=== PATIENT | male | born 1955 | race Caucasian/White ===

== ENCOUNTER 2019-11-13 15:05 | Emergency (ER) | payer OTHER ==
--- NOTE | 2019-11-13 15:15 | EDM.PDOC ---
ED HPI GENERAL MEDICAL PROBLEM - General Chief Complaint: Respiratory Problem Stated Complaint: Dyspnea Time Seen by Provider: 11/13/19 15:10 Source of Information: Reports: Patient, Family (), Old Records ([facility] chart/EMR) History Limitations: Reports: No Limitations - History of Present Illness INITIAL COMMENTS - FREE TEXT/NARRATIVE: The patient was brought to the emergency room via private automobile by his for evaluation of progressive dyspnea, weakness, and dependent edema over the last few days with no history of fever, known exposure to infection, recent use of antipyretic medication, etc. Only brief history obtained from his prior to her leaving the facility with the patient being a somewhat poor historian. Note that the patient does have an unknown type of liver disease and previous history of alcohol abuse as below with an unintentional 22 pound weight gain during the last 2 months. The patient denies any chest pain/pressure , heart flutter, orthostasis, orthopnea, diaphoresis, paresthesias, or any other anginal-type symptoms, however note progressive decreased exercise tolerance during the last week. He did have a minor fall at home yesterday with no history of significant head injury, change in mental status, headaches, visual changes, neurological deficits, or other complaints or injuries. He did suffer a mild left arm skin tear while trying to get into the chair to come to the hospital today, however. No recent history of abdominal pain, heartburn, nausea, diarrhea, melena, gross hematochezia, or any food intolerance, including fatty foods, etc., although he has been having some problems with nonspecific flatulence. He denies gross hematuria, colic, or other UTI symptoms. The patient also denies any recent fever, wheezing, etc., although he has had some greenish chronic nasal drainage and mildly productive cough during the last 3 months as below with the patient using his 's nebulizer treatments during the last couple of days, which he normally uses. He also has chronic sinusitis type symptoms over the last 3 months, which is not new for the patient. He denies any specific pain or other discomfort. He has not been out of the house for the last couple of months, although he was in [place] in August 2011. Onset: Gradual Duration: Day(s): (As above), Getting Worse Location: Reports: Other (No pain) Quality: Reports: Same as Previous Episode Improves with: Reports: Rest Worsens with: Reports: Movement (Activity) Context: Reports: Trauma (Minor as above with no acute injury). Denies: Sick Contact Associated Symptoms: Reports: Cough (Chronic), cough w sputum (As above), Shortness of Breath, Weakness. Denies: Chest Pain, Diaphoresis, Fever/Chills, Loss of Appetite, Malaise, Nausea/Vomiting, Rash, Syncope Treatments DIRECTOR FAMILY: Reports: Other Medication(s) (As above) Abdomen Pain Score (Numeric/FACES): 6 - Related Data Allergies Allergy/AdvReac Type Severity Reaction Status Date / Time amoxicillin Allergy Nausea Verified 11/13/19 17:59 atorvastatin [From Lipitor] Allergy UNKNOWN Verified 12/07/17 14:59 erythromycin base Allergy UNKNOWN Verified 12/07/17 14:59 Home Meds: Home Meds ALPRAZolam [Alprazolam] 1 tab PO BEDTIME 11/13/19 [History] Aspirin [Adult Low Dose Aspirin EC] 81 mg PO DAILY 11/13/19 [History] Furosemide 40 mg PO DAILY 11/13/19 [History] Omeprazole 20 mg PO DAILY 11/13/19 [History] Spironolactone [Aldactone] 1 tab PO DAILY 11/13/19 [History] cloNIDine HCL [Clonidine HCl] 1 tab PO BID 11/13/19 [History] Past Medical History HEENT History: Reports: Allergic Rhinitis, Hard of Hearing, Impaired Vision, Otitis Media, Sinusitis, Other (See Below). Denies: Cataract, Glaucoma, Macular Degeneration, Retinal Detachment Other HEENT History: Recurrent otitis media with no previous history of PE tubes. Chronic allergic rhinitis and sinusitis. History of acute right-sided hearing loss and dizziness in August 2009 with negative workup as below. He does wear glasses. Cardiovascular History: Reports: Arrhythmia, High Cholesterol, Hypertension, Other (See Below). Denies: Afib, Aneurysm, Blood Clots/VTE/DVT, CAD, Cardiomyopathy, Heart Failure, Heart Murmur, [place], PVD, Syncope Other Cardiovascular History: PACs and PVCs Respiratory History: Reports: Bronchitis, Recurrent, COPD, Intubation, Previous , Pneumonia, Recurrent, Pulmonary Fibrosis. Denies: Asthma, Intubation, Difficult, PE, Pneumothorax, Sleep Apnea Gastrointestinal History: Reports: Cholelithiasis, Colon Polyp, Diverticulosis, Fatty Liver, Gastritis, GERD, Hepatitis, PUD, Other (See Below). Denies: Celiac Disease, Chronic Constipation, Chronic Diarrhea, Cirrhosis, Fecal Incontinence, GI Bleed, Helicobacter Pylori, Hiatal Hernia, Inflammatory Bowel Disease, Irritable Bowel Syndrome, Jaundice, Pancreatitis Other Gastrointestinal History: History of duodenal ulcer at age 14. Benign gastric colonic polyp by EGD as below. Benign diminutive polyps in the rectum and mid aspect of the descending colon diagnosed by colonoscopy as below. Colon polyps not sent for pathological review. Sigmoid diverticulosis. Chronic LFTs elevation secondary to fatty liver and/or alcohol use. Hepatosplenomegaly. Genitourinary History: Reports: None. Denies: Acute Renal Failure, BPH, Chronic Renal Insuffiency, Renal Calculus, Retention, Urinary, STD, Urinary Incontinence, UTI, Recurrent Musculoskeletal History: Reports: Arthritis, Back Pain, Chronic, Fracture, Neck Pain, Chronic, Osteoarthritis, Other (See Below). Denies: Amputation, Gout, Osteoporosis, RA, SLE Other Musculoskeletal History: Right ankle fracture in 1976 with surgery as below. Moderate left anterior lateral meniscal tear of the knee with additional ruptured popliteal cyst and moderate chondromalacia with no surgery to this point. Neurological History: Reports: None. Denies: Alzheimers Disease, Cerebral Aneurysms, Concussion, CVA, Headaches, Chronic, Head Trauma, Migraines, MS, Neuropathy, Peripheral, Parkinson's, Seizure, TIA, Vertigo Psychiatric History: Reports: Addiction, Anxiety, Depression, Other (See Below) . Denies: Abuse, Victim of, ADD, ADHD, Alzheimers Disease, Dementia, Hallucinations, Psych Hospitalization(s), Psychosis, PTSD, Suicide Attempt, Suicidal Ideation Other Psychiatric History: Probable history of alcohol abuse especially since his senior living in 2018 as below. Endocrine/Metabolic History: Reports: Hypomagnesemia, Obesity/BMI 30+. Denies: Diabetes, Type I, Diabetes, Type II, Diabetes Mellitus, Type 3c, Hypothyroidism , IDDM Hematologic History: Reports: Anemia. Denies: Blood Transfusion(s), Iron Deficiency Immunologic History: Denies: AIDS, HIV, SLE Oncologic (Cancer) History: Reports: None. Denies: Basal Cell Carcinoma, Colon , Hodgkin's Lymphoma, Leukemia, Liver, Lymphoma, Malignant Melanoma, Non-Hodgkin 's Lymphoma, Pancreatic, Prostate, Squamous Cell Carcinoma Dermatologic History: Reports: None. Denies: Eczema, Psoriasis - Infectious Disease History Infectious Disease History: Reports: Chicken Pox, Measles, Mumps. Denies: C- Difficile, Meningitis, Mononucleosis, MRSA, Novel Coronavirus, Pertussis ( Whooping Cough), Rheumatic Fever, Rubella, Scarlet Fever, Shingles, TB, VRE - Past Surgical History Head Surgeries/Procedures: Reports: None HEENT Surgical History: Reports: Adenoidectomy, Oral Surgery, Tonsillectomy, Other (See Below). Denies: Cataract Surgery, Eye Surgery, Laser Surgery, LASIK , Myringotomy w Tube(s), Naso-Sinus Surgery Other HEENT Surgeries/Procedures: [place] teeth extraction x 4 in his 20s. Additional teeth extractions. Cardiovascular Surgical History: Reports: None. Denies: Varicose Respiratory Surgical History: Denies: Thoracentesis GI Surgical History: Reports: Cholecystectomy, Colonoscopy, EGD, Polypectomy, Other (See Below). Denies: Appendectomy, Hernia, Abdominal, Hernia, Inguinal, Hernia Repair/Other Other GI Surgeries/Procedures: Colonoscopy and EGD with excision of benign gastric polyps and benign colonic polyps 2 as above on 06/19/10; laparoscopic cholecystectomy on 09/16/06. Male Surgical History: Reports: Circumcision. Denies: TURP-Transurethral Resection of Prostate, Vasectomy Other Male Surgeries/Procedures: Circumcision as an . Endocrine Surgical History: Reports: None. Denies: Thyroid Biopsy Neurological Surgical History: Reports: None. Denies: C-Spine, Discectomy, Laminectomy, Lumbar Spine, Sacral Spine, Spinal Fusion, Thoracic Spine Musculoskeletal Surgical History: Reports: Carpal Tunnel, ORIF, Other (See Below ). Denies: Arthroscopic Knee, Arthroscopic Procedure, Ganglion Cyst, Joint Replacement, Shoulder Surgery Other Musculoskeletal Surgeries/Procedures:: Bilateral carpal tunnel release at about age 60. Left ankle surgery secondary to fracture in 1976 with no ORIF? Oncologic Surgical History: Reports: None Dermatological Surgical History: Reports: None - Past Imaging History Past Imaging History: Reports: ALEXANDRA Screen (04/14/10), CAT Scan (Temporal bones bilaterally on 08/13/09.), MRI (Left knee on 09/23/15), Ultrasound (Right upper quadrant ultrasound on 05/13/19 and 09/03/16. Abdominal ultrasound on 01/06/2000.), Venous Doppler (Left leg on 04/08/10.) Social & Family History - Tobacco Use Smoking Status *Q: Former Smoker Tobacco Use Within Last Twelve Months: Cigarettes Years of Tobacco use: 37 Packs/Tins Daily: 1 Packs/Tins Daily Comment: Smoked between ages 27 and 64 with last use on . Used Tobacco, but Quit: Yes Smoking Cessation Information Provided To Patient: No Second Hand Smoke Exposure: No Second Hand Smoke Education Provided: No - Alcohol Use Alcohol Use History: Yes Days Per Week of Alcohol Use: 3 Number of Drinks Per Day: 10 Number of Drinks Per Day Comment: Drinks to intoxication usually hard strait tequila since 2018 with moderate alcohol use prior to that with the patient denying alcohol abuse until he retired in 2018. No previous DWIs, problems with alcohol abuse, etc. Total Drinks Per Week: 30 Alcohol Use in Last Twelve Months: Yes Alcohol Use Frequency: Binges - Recreational Drug Use Recreational Drug Use: No Drug Use in Last 12 Months: No Recreational Drug Type: Denies: Amphetamines (Speed), Cocaine, Heroin, Inhalants (Glues, Solvents, Aerosols), LSD (Acid), Marijuana/Hashish, Methamphetamine, Morphine, Oxycodone - Living Situation & Occupation Living situation: Reports: Occupation: Retired (From the railroad at age 62, 2018) ED ROS GENERAL - Review of Systems Review Of Systems: Comprehensive ROS is negative, except as noted in HPI. ED EXAM, GENERAL - Physical Exam Exam: See Below Exam Limited By: No Limitations General Appearance: Alert, WD/WN, Moderate Distress, Cachetic (Mild), Other ( Moderate generalized nonspecific weakness). No: Lethargic Eye Exam: Bilateral Eye: EOMI, PERRL, Other (Mild scleral icterus. Patient is wearing glasses; no nystagmus) Ears: Normal External Exam, Normal Canal, Hearing Grossly Normal, Normal TMs Nose: Normal Mucosa, No Blood, Clear Rhinorrhea Throat/Mouth: Normal Inspection, Normal Lips, Normal Teeth (Occasional missing teeth), Normal Gums, Normal Oropharynx, Normal Voice, No Airway Compromise. No : Dysphagia, Perioral Cyanosis Head: Atraumatic, Normocephalic. No: Facial Swelling, Facial Tenderness, Sinus Tenderness Neck: Normal Inspection, Supple, Non-Tender, Full Range of Motion. No: Carotid Bruit, Lymphadenopathy (L), Lymphadenopathy (R), Thyromegaly Respiratory/Chest: No Respiratory Distress, No Accessory Muscle Use, Chest Non- Tender, Decreased Breath Sounds (Right base), Rales (Mild diffuse bilateral particularly in the bases), Rhonchi (Occasional bilateral), Wheezing ( Occasional bilateral). No: Stridor, Pleural Rub, Retractions Cardiovascular: Normal Peripheral Pulses, No Gallop, No JVD, No Murmur, No Rub, Tachycardia (Occasional as belowbrief with activity), Extra Beats (Regular rate ). No: No Edema (Dependent edema as below), Gallop/S3, Gallop/S4, Friction Rub Peripheral Pulses: 2+: Radial (L), Radial (R), Dorsalis Pedis (L), Dorsalis Pedis (R) GI/Abdominal: Normal Bowel Sounds, Soft, Non-Tender, No Organomegaly, No Abnormal Bruit, No Mass, Pelvis Stable, Distended (With moderate ascites), Hepatomegaly, Splenomegaly. No: Guarding, Rebound, Tender (Male) Exam: Other (1 cm possible abscess in the proximal right retrocecal region with history of greenish drainage). No: Circumcised, Hernia, Inguinal Lymphadenopathy, Penile Lesions, Scrotum Tenderness (L), Scrotum Tenderness (R) Rectal (Males) Exam: Deferred Back Exam: Normal Inspection. No: CVA Tenderness (L), CVA Tenderness (R), Muscle Spasm Extremities: Normal Inspection, Normal Range of Motion, Non-Tender, Normal Capillary Refill, Pedal Edema (+1 bilateral pedal/pretibial edema ). No: Kyle' s Sign Neurological: Alert, Oriented, CN II-XII Intact, Normal Cognition, Normal Gait, Normal Reflexes (Negative Babinski's), No Motor/Sensory Deficits Psychiatric: Normal Affect, Normal Mood, Other (No sign of intoxication) Skin Exam: Ecchymosis (Diffuse occasional), Jaundice (Borderline), Wound/ Incision (12 centimeter abrasion/skin tear over the proximal left ulnar region) . No: Diaphoretic, Petechiae Lymphatic: No Adenopathy EKG INTERPRETATION EKG Date: 11/13/19 Time: 15:55 Rhythm: Other (PACs and PVCs) [place]: Normal (Left cardiac axis) P-Wave: Present QRS: Normal (0.09 seconds with diffuse repolarization changes and overall low voltage) ST-T: Normal QT: Normal WA/PQ Interval: 0.16 seconds with extreme poor R-wave progression in the anterior leads Comparison: No Change (Since Last EKG on 10/03/19) EKG Interpretation Comments: 1. No acute ischemic changes 2. PACs and PVCs 3. Repolarization changes Course - Vital Signs Last Recorded V/S: Last Vital Signs Temp 37.1 C 11/13/19 15:10 Pulse 95 11/13/19 17:57 Resp 19 11/13/19 17:57 BP 149/98 H 11/13/19 17:57 Pulse Ox 97 11/13/19 17:57 Vital Signs - 24 hr 11/13/19 11/13/19 11/13/19 15:10 15:40 15:55 Temperature [ 37.1 C Temporal] Pulse, 87 86 85 Peripheral [ Pulse Oximetry] Respiratory 18 18 20 Rate Blood Pressure 146/89 H 148/100 H 143/100 H [Left Upper Arm ] O2 Sat by Pulse 95 96 95 Oximetry 11/13/19 11/13/19 11/13/19 16:10 17:07 17:57 Temperature [ Temporal] Pulse, 88 89 95 Peripheral [ Pulse Oximetry] Respiratory 18 17 19 Rate Blood Pressure 135/90 153/93 H 149/98 H [Left Upper Arm ] O2 Sat by Pulse 95 95 97 Oximetry - Orders/Labs/Meds Orders: Active Orders 24 hr Category Date Time Status Cardiac Monitoring [RC] CONTINUOUS Care 11/13/19 15:15 Active Communication Order [RC] ROUTINE Care 11/13/19 15:15 Active Communication Order [RC] ROUTINE Care 11/13/19 18:28 Ordered EKG Documentation Completion [RC] ASDIRECTED Care 11/13/19 15:15 Active Oxygen Therapy, ED [RC] CONTINUOUS Care 11/13/19 15:15 Active Peripheral IV Care [RC] . DIRECTED Care 11/13/19 15:15 Active Pulse Oximetry [RC] CONTINUOUS Care 11/13/19 15:15 Active Up With Assistance [RC] ASDIRECTED Care 11/13/19 15:15 Active Nothing Per Oral Diet [DIET] Diet 11/13/19 Breakfast Active Chest 1V Frontal [CR] Stat Exams 11/13/19 15:15 Taken Chest PE [Ang Chest] [CT] Stat Exams 11/13/19 16:23 Taken CORONAVIRUS COVID-19 PCR PHL Stat Lab 11/13/19 15:15 Received CULTURE BLOOD [BC] Stat Lab 11/13/19 15:30 Received CULTURE BLOOD [BC] Stat Lab 11/13/19 15:40 Received CULTURE SPUTUM + SMEAR [RM] Urgent Lab 11/13/19 15:15 Ordered Sodium Chloride 0.9% [Saline Flush] Med 11/13/19 15:15 Active 10 ml FLUSH ASDIRECTED PRN Blood Culture x2 Reflex Set [OM.PC] Stat Oth 11/13/19 15:15 Ordered Isolation [COMM] Routine Oth 11/13/19 15:15 Active Obtain Past Medical Record [OM.PC] Stat Oth 11/13/19 15:15 Active Peripheral IV Insertion Adult [OM.PC] Stat Ot 11/13/19 15:15 Ordered Resuscitation Status Routine Resus Stat 11/13/19 15:15 Ordered Medication Orders Sodium Chloride (Saline Flush) 10 ml FLUSH ASDIRECTED PRN PRN Reason: Keep Vein Open Last Admin: 11/13/19 16:30 Dose: 10 ml Labs: Laboratory Tests 11/13/19 11/13/19 11/13/19 Range/Units 15:30 15:30 15:30 WBC 5.3 (4.0-10.2) K/uL RBC 3.77 L (4.33-5.41) M/uL Hgb 12.7 L (13.1-16.8) g/dL Hct 37.5 L (39.0-49.0) % MCV 99.5 H (84.0-98.0) fL MCH 33.7 H (28.2-33.3) pg MCHC 33.9 (31.7-36.0) g/dL RDW 14.2 H (11.2-14.1) % Plt Count 125 L (150-350) K/uL Neut % (Auto) 59.2 (45.0-80.0) % Lymph % (Auto) 26.1 (10.0-50.0) % [place] % (Auto) 11.7 (2.0-14.0) % Eos % (Auto) 2.4 (0.0-5.0) % Baso % (Auto) 0.6 (0.0-2.0) % Neut # (Auto) 3.15 (1.40-7.00) K/uL Lymph # (Auto) 1.39 (0.50-3.50) K/uL [place] # (Auto) 0.62 (0.00-1.00) K/uL Eos # (Auto) 0.13 (0.00-0.50) K/uL Baso # (Auto) 0.03 (0.00-0.20) K/uL PT 15.7 H (9.5-12.0) SEC INR 1.6 APTT 26.7 (24.5-32.8) SEC D-Dimer, Quantitative 4230 H (0-400) ng/mL Sodium (136-145) mmol/L Potassium (3.5-5.1) mmol/L Chloride (98-107) mmol/L Carbon Dioxide (21.0-32.0) mmol/L BUN (7-18) mg/dL Creatinine (0.51-1.17) mg/dL Est Cr Clr Drug Dosing Estimated GFR (MDRD) mL/min Glucose (74-106) mg/dL Lactic Acid (0.4-2.0) mmol/L Calcium (8.5-10.1) mg/dL Magnesium (1.8-2.4) mg/dL Total Bilirubin (0.2-1.0) mg/dL Direct Bilirubin (0.0-0.2) mg/dL Indirect Bilirubin mg/dL AST (15-37) U/L ALT (12-78) U/L Alkaline Phosphatase (46-116) IU/L Ammonia (11-32) umol/L Creatine Kinase (26-308) U/L Creatine Kinase Index (0.0-2.5) % CK-MB (CK-2) (0.00-3.60) ng/mL Troponin I (0.000-0.056) ng/mL NT-Pro-B Natriuret Pep (0-125) pg/mL Total Protein (6.4-8.2) g/dL Albumin (3.4-5.0) g/dL Amylase (25-115) U/L Lipase (73-393) U/L TSH, Ultra Sensitive (0.358-3.740) mIU/mL Ethyl Alcohol (0.000-0.080) g/dL 11/13/19 11/13/19 11/13/19 Range/Units 15:30 15:30 15:30 WBC (4.0-10.2) K/uL RBC (4.33-5.41) M/uL Hgb (13.1-16.8) g/dL Hct (39.0-49.0) % MCV (84.0-98.0) fL MCH (28.2-33.3) pg MCHC (31.7-36.0) g/dL RDW (11.2-14.1) % Plt Count (150-350) K/uL Neut % (Auto) (45.0-80.0) % Lymph % (Auto) (10.0-50.0) % [place] % (Auto) (2.0-14.0) % Eos % (Auto) (0.0-5.0) % Baso % (Auto) (0.0-2.0) % Neut # (Auto) (1.40-7.00) K/uL Lymph # (Auto) (0.50-3.50) K/uL [place] # (Auto) (0.00-1.00) K/uL Eos # (Auto) (0.00-0.50) K/uL Baso # (Auto) (0.00-0.20) K/uL PT (9.5-12.0) SEC INR APTT (24.5-32.8) SEC D-Dimer, Quantitative (0-400) ng/mL Sodium 135 L (136-145) mmol/L Potassium 4.7 (3.5-5.1) mmol/L Chloride 100 (98-107) mmol/L Carbon Dioxide 27.4 (21.0-32.0) mmol/L BUN 23 H (7-18) mg/dL Creatinine 1.17 (0.51-1.17) mg/dL Est Cr Clr Drug Dosing TNP Estimated GFR (MDRD) > 60 mL/min Glucose 104 (74-106) mg/dL Lactic Acid 2.3 H (0.4-2.0) mmol/L Calcium 8.9 (8.5-10.1) mg/dL Magnesium 1.8 (1.8-2.4) mg/dL Total Bilirubin 3.2 H (0.2-1.0) mg/dL Direct Bilirubin (0.0-0.2) mg/dL Indirect Bilirubin mg/dL AST 64 H (15-37) U/L ALT 29 (12-78) U/L Alkaline Phosphatase 134 H (46-116) IU/L Ammonia (11-32) umol/L Creatine Kinase 97 (26-308) U/L Creatine Kinase Index 1.1 (0.0-2.5) % CK-MB (CK-2) 1.10 (0.00-3.60) ng/mL Troponin I 0.051 (0.000-0.056) ng/mL NT-Pro-B Natriuret Pep 937 H (0-125) pg/mL Total Protein 7.1 (6.4-8.2) g/dL Albumin 2.8 L (3.4-5.0) g/dL Amylase 57 (25-115) U/L Lipase (73-393) U/L TSH, Ultra Sensitive 1.958 (0.358-3.740) mIU/mL Ethyl Alcohol (0.000-0.080) g/dL 11/13/19 11/13/19 Range/Units 15:30 15:30 WBC (4.0-10.2) K/uL RBC (4.33-5.41) M/uL Hgb (13.1-16.8) g/dL Hct (39.0-49.0) % MCV (84.0-98.0) fL MCH (28.2-33.3) pg MCHC (31.7-36.0) g/dL RDW (11.2-14.1) % Plt Count (150-350) K/uL Neut % (Auto) (45.0-80.0) % Lymph % (Auto) (10.0-50.0) % [place] % (Auto) (2.0-14.0) % Eos % (Auto) (0.0-5.0) % Baso % (Auto) (0.0-2.0) % Neut # (Auto) (1.40-7.00) K/uL Lymph # (Auto) (0.50-3.50) K/uL [place] # (Auto) (0.00-1.00) K/uL Eos # (Auto) (0.00-0.50) K/uL Baso # (Auto) (0.00-0.20) K/uL PT (9.5-12.0) SEC INR APTT (24.5-32.8) SEC D-Dimer, Quantitative (0-400) ng/mL Sodium (136-145) mmol/L Potassium (3.5-5.1) mmol/L Chloride (98-107) mmol/L Carbon Dioxide (21.0-32.0) mmol/L BUN (7-18) mg/dL Creatinine (0.51-1.17) mg/dL Est Cr Clr Drug Dosing Estimated GFR (MDRD) mL/min Glucose (74-106) mg/dL Lactic Acid (0.4-2.0) mmol/L Calcium (8.5-10.1) mg/dL Magnesium (1.8-2.4) mg/dL Total Bilirubin 3.2 H (0.2-1.0) mg/dL Direct Bilirubin 1.6 H (0.0-0.2) mg/dL Indirect Bilirubin 1.6 mg/dL AST (15-37) U/L ALT (12-78) U/L Alkaline Phosphatase (46-116) IU/L Ammonia 167 H (11-32) umol/L Creatine Kinase (26-308) U/L Creatine Kinase Index (0.0-2.5) % CK-MB (CK-2) (0.00-3.60) ng/mL Troponin I (0.000-0.056) ng/mL NT-Pro-B Natriuret Pep (0-125) pg/mL Total Protein (6.4-8.2) g/dL Albumin (3.4-5.0) g/dL Amylase (25-115) U/L Lipase 96 (73-393) U/L TSH, Ultra Sensitive (0.358-3.740) mIU/mL Ethyl Alcohol 0.002 (0.000-0.080) g/dL Blood cultures 2 were collected Sputum was collected for Gram stain, culture, and sensitivity. Microbiology 11/13/19 15:15 Influenza Type A Antigen Screen - Final Nasal, Unspecified NEGATIVE INFLUENZA A VIRUS AG REFERENCE RANGE: NEGATIVE Influenza Type B Antigen Screen - Final NEGATIVE INFLUENZA B VIRUS AG REFERENCE RANGE: NEGATIVE COVID-19 nasal specimen collected with results pending Meds: Medications Generic Name Dose Route Start Last Admin Trade Name Freq PRN Reason Stop Dose Admin Sodium Chloride 10 ml 11/13/19 15:15 11/13/19 16:30 Saline Flush FLUSH 10 ml ASDIRECTED PRN Administration Keep Vein Open Discontinued Medications Generic Name Dose Route Start Last Admin Trade Name Freq PRN Reason Stop Dose Admin Famotidine 40 mg 11/13/19 16:23 11/13/19 16:31 Pepcid IVPUSH 11/13/19 16:24 40 mg ONETIME ONE Administration Furosemide 40 mg 11/13/19 16:23 11/13/19 16:31 Lasix IVPUSH 11/13/19 16:24 40 mg NOW ONE Administration Iopamidol 100 ml 11/13/19 16:27 11/13/19 17:20 [id number] (76%) IVPUSH 11/13/19 16:28 100 ml ONETIME ONE Administration - Radiology Interpretation Free Text/Narrative:: quality assurance monitor final shows overall sinus rhythm with occasional PVCs and PACs with average heart rate in the 80s however occasional brief tachycardia in the 110s to 120s. Chest x-ray, portable, shows evidence of mild mostly centralized CHF with additional right middle lobe consolidation consistent with pneumonia. Additional moderately elevated right hemidiaphragm and/or concomitant pleural effusion. No pneumothorax or cardiomegaly. Telephone consultation at 17:32 hours with the radiology department at [facility] in [place] discussing CTA of the chest using PE protocol. No evidence of PE with incidental findings of bilateral atelectasis, moderate right pleural effusion, ascites, hepatic cirrhosis, 2 mm right upper lobe pulmonary nodule, and additional 8 mm nonspecific nodule in the right hepatic lobe. Official x-ray reports received prior to transfer of the patient CT Results Date: 11/13/19 CT Results Time: 17:32 Departure - Departure Time of Disposition: 18:35 Disposition: DC/Tfer to Acute Hospital 02 Condition: Fair Clinical Impression: CHF (congestive heart failure), COPD (chronic obstructive pulmonary disease), Pneumonia, Elevated LFTs, Peptic reflux disease, D-dimer, elevated, Hypoalbuminemia, Macrocytic anemia, Alcohol abuse, PAC (premature atrial contraction), PVCs (premature ventricular contractions), Cellulitis, Elevated lactic acid level, Hepatic cirrhosis, Hypertension - Discharge Information *PRESCRIPTION DRUG MONITORING PROGRAM REVIEWED*: Not Applicable *COPY OF PRESCRIPTION DRUG MONITORING REPORT IN PATIENT [place]: Not Applicable Referrals: PCP,None [Primary Care Provider] - Forms: ED Department Discharge, Interfacility Transfer JOSÉ MIGUEL Additional Instructions: 1. Drive you BEL to the emergency room at [facility] for direct admission into that facility. 2. Nothing to eat or drink until otherwise directed by accepting physicians in [place]. Sepsis Event Note - Focused Exam Vital Signs: Vital Signs Temp Pulse Resp BP Pulse Ox 11/13/19 17:57 95 19 149/98 H 97 11/13/19 17:07 89 17 153/93 H 95 11/13/19 16:10 88 18 135/90 95 11/13/19 15:55 85 20 143/100 H 95 11/13/19 15:40 86 18 148/100 H 96 11/13/19 15:10 37.1 C 87 18 146/89 H 95 Date Exam was Performed: 11/13/19 Time Exam was Performed: 18:28 - Problem List & Annotations (1) Elevated LFTs SNOMED Code(s): 327289506, 633953535 Code(s): R79.89 - OTHER SPECIFIED ABNORMAL FINDINGS OF BLOOD CHEMISTRY Status: Acute Priority: High Current Visit: Yes Annotation/Comment:: Known history of chronic LFTs elevation secondary to previous fatty liver and alcohol abuse. Newly diagnosed hepatic cirrhosis and secondary ascites today as above with additional increased ammonia levels and elevated INR. No evidence of acute bleeding. Patient will likely need paracentesis and GI consultation for possible liver biopsy. Note small right pulmonary nodule by CT scan as above. Telephone consultation at 17:[address] Crowe, emergency room physician at [facility], who does accept the patient for further treatment , evaluation, and probable admission, with no further treatment recommendations given. He is aware of private automobile transfer of the patient by the patient' s secondary to lack of ambulance availability. Vital signs and clinical exam were stable at time of transfer. Patient transferred with saline lock in place. (2) COPD (chronic obstructive pulmonary disease) SNOMED Code(s): 73550522 Code(s): J44.9 - CHRONIC OBSTRUCTIVE PULMONARY DISEASE, UNSPECIFIED Status : Acute Priority: High Current Visit: Yes Onset Date: ~11/13/19 Annotation/Comment:: Note possible right middle lobe pneumonia by today's chest x-ray versus atelectasis by CT of the chest as above. Blood cultures 2 were collected. Sputum for culture and sensitivity and COVID-19 were also collected as above. The patient and his were cautioned not to use her medications or nebulizer with the patient to receive his home medications at time of discharge from accepting facility. Consider PFTs depending on his clinical course. Note previous history of tobacco abuse with recent tobacco cessation. The patient was afebrile with initiation of antibiotic therapy by accepting providers per their discretion. No evidence of sepsis by clinical exam, however lactic acid level should be repeated within 3 hours by accepting providers. IV fluids were not initiated secondary to patient's ascites and CHF. Qualifiers: COPD type: COPD with acute lower respiratory infection Qualified Code(s): J44.0 - Chronic obstructive pulmonary disease with (acute) lower respiratory infection (3) Pneumonia SNOMED Code(s): 319767417 Code(s): J18.9 - PNEUMONIA, UNSPECIFIED ORGANISM Status: Acute Priority: High Current Visit: Yes Onset Date: ~11/13/19 Annotation/Comment:: As above Qualifiers: Pneumonia type: due to unspecified organism Laterality: right Lung location: middle lobe of lung Qualified Code(s): J18.9 - Pneumonia, unspecified organism (4) CHF (congestive heart failure) SNOMED Code(s): 51577109 Code(s): I50.9 - HEART FAILURE, UNSPECIFIED Status: Acute Priority: High Current Visit: Yes Onset Date: 11/13/19 Annotation/Comment:: CHF with concomitant ascites with no chest pain or true anginal type symptoms. Chest pain protocol was not initiated in the emergency room secondary to absence of anginal complaints. No EKG changes consistent with ischemia with normal cardiac enzymes with exception of mild change in troponin I, which is normal, secondary to his CHF. Consider cardiology consultation, rule out of acute [place], etc. by accepting providers. Qualifiers: Heart failure type: unspecified Heart failure chronicity: acute Qualified Code(s): I50.9 - Heart failure, unspecified (5) Elevated lactic acid level SNOMED Code(s): 9024745 Code(s): R79.89 - OTHER SPECIFIED ABNORMAL FINDINGS OF BLOOD CHEMISTRY Status: Acute Priority: High Current Visit: Yes Onset Date: 11/13/19 Annotation/Comment:: As above (6) Peptic reflux disease SNOMED Code(s): 099763096 Code(s): K21.9 - GASTRO-ESOPHAGEAL REFLUX DISEASE WITHOUT ESOPHAGITIS Status: Chronic Priority: Medium Current Visit: Yes Annotation/Comment:: High-dose IV Pepcid given as GI prophylaxis with no recent abdominal complaints or evidence of GI bleed. (7) D-dimer, elevated SNOMED Code(s): 649814261 Code(s): R79.89 - OTHER SPECIFIED ABNORMAL FINDINGS OF BLOOD CHEMISTRY Status: Acute Priority: High Current Visit: Yes Onset Date: 11/13/19 Annotation/Comment:: As above. No clinical evidence of DVT or PE with negative CTA of the chest for PE as above. Patient may benefit from venous Doppler studies of the lower extremities. (8) Hypoalbuminemia SNOMED Code(s): 442160018 Code(s): E88.09 - OTH DISORDERS OF PLASMA-PROTEIN METABOLISM, NEC Status: Acute Priority: Medium Current Visit: Yes Annotation/Comment:: Note hepatic cirrhosis. Continue to observe closely by accepting providers. (9) Macrocytic anemia SNOMED Code(s): 06960226 Code(s): D53.9 - NUTRITIONAL ANEMIA, UNSPECIFIED Status: Chronic Priority : Medium Current Visit: Yes Annotation/Comment:: Known history of macrocytic anemia, which is stable by our hospital records. Recent ferritin and iron levels were elevated with recent decreased TIBC, however. Note hypoalbuminemia and alcohol abuse history as above. Further workup accepting providers. (10) Alcohol abuse SNOMED Code(s): 93100232 Code(s): F10.10 - ALCOHOL ABUSE, UNCOMPLICATED Status: Chronic Priority: High Current Visit: Yes Annotation/Comment:: As above. Newly diagnosed hepatic failure, including cirrhosis by CT scan, elevated ammonia levels, etc. as above. (11) PAC (premature atrial contraction) SNOMED Code(s): 920835986 Code(s): I49.1 - ATRIAL PREMATURE DEPOLARIZATION Status: Chronic Priority : Medium Current Visit: Yes Annotation/Comment:: No chest pain or anginal complaints (12) PVCs (premature ventricular contractions) SNOMED Code(s): 15337865 Code(s): I49.3 - VENTRICULAR PREMATURE DEPOLARIZATION Status: Chronic Priority: Medium Current Visit: Yes Annotation/Comment:: Chest pain or anginal complaints (13) Cellulitis SNOMED Code(s): 618548221 Code(s): L03.90 - CELLULITIS, UNSPECIFIED Status: Acute Priority: Medium Current Visit: Yes Annotation/Comment:: Possible beginning small abscess in the right posterior scrotal region with recent greenish discharge by his 's history. Consider I&D, collection of specimen for culture and sensitivity, etc. by accepting providers. Qualifiers: Site of cellulitis: other site Qualified Code(s): L03.818 - Cellulitis of other sites (14) Hepatic cirrhosis SNOMED Code(s): 04114721 Code(s): K74.60 - UNSPECIFIED CIRRHOSIS OF LIVER Status: Acute Priority: High Current Visit: Yes Onset Date: ~11/13/19 Annotation/Comment:: As above Qualifiers: Hepatic cirrhosis type: alcoholic cirrhosis Ascites presence: with ascites Qualified Code(s): K70.31 - Alcoholic cirrhosis of liver with ascites (15) Hypertension SNOMED Code(s): 38128911 Code(s): I10 - ESSENTIAL (PRIMARY) HYPERTENSION Status: Chronic Priority : High Current Visit: Yes Annotation/Comment:: Blood pressures were somewhat elevated in the emergency room. Continue to observe closely by accepting providers. Qualifiers: Hypertension type: essential hypertension Qualified Code(s): I10 - Essential (primary) hypertension - Problem List Review Problem List Initiated/Reviewed/Updated: Yes - My Orders Last 24 Hours: My Active Orders 11/13/19 15:15 Cardiac Monitoring [RC] CONTINUOUS Communication Order [RC] ROUTINE EKG Documentation Completion [RC] ASDIRECTED Oxygen Therapy, ED [RC] CONTINUOUS Peripheral IV Care [RC] . DIRECTED Pulse Oximetry [RC] CONTINUOUS Up With Assistance [RC] ASDIRECTED Chest 1V Frontal [CR] Stat CORONAVIRUS COVID-19 PCR PHL Stat CULTURE SPUTUM + SMEAR [RM] Urgent Sodium Chloride 0.9% [Saline Flush] 10 ml FLUSH ASDIRECTED PRN Blood Culture x2 Reflex Set [OM.PC] Stat Isolation [COMM] Routine Obtain Past Medical Record [OM.PC] Stat Peripheral IV Insertion Adult [OM.PC] Stat Resuscitation Status Routine 11/13/19 15:30 CULTURE BLOOD [BC] Stat 11/13/19 15:40 CULTURE BLOOD [BC] Stat 11/13/19 16:23 Chest PE [Ang Chest] [CT] Stat 11/13/19 18:28 Communication Order [RC] ROUTINE 11/13/19 Breakfast Nothing Per Oral Diet [DIET] - Assessment/Plan Last 24 Hours: My Active Orders 11/13/19 15:15 Cardiac Monitoring [RC] CONTINUOUS Communication Order [RC] ROUTINE EKG Documentation Completion [RC] ASDIRECTED Oxygen Therapy, ED [RC] CONTINUOUS Peripheral IV Care [RC] . DIRECTED Pulse Oximetry [RC] CONTINUOUS Up With Assistance [RC] ASDIRECTED Chest 1V Frontal [CR] Stat CORONAVIRUS COVID-19 PCR PHL Stat CULTURE SPUTUM + SMEAR [RM] Urgent Sodium Chloride 0.9% [Saline Flush] 10 ml FLUSH ASDIRECTED PRN Blood Culture x2 Reflex Set [OM.PC] Stat Isolation [COMM] Routine Obtain Past Medical Record [OM.PC] Stat Peripheral IV Insertion Adult [OM.PC] Stat Resuscitation Status Routine 11/13/19 15:30 CULTURE BLOOD [BC] Stat 11/13/19 15:40 CULTURE BLOOD [BC] Stat 11/13/19 16:23 Chest PE [Ang Chest] [CT] Stat 11/13/19 18:28 Communication Order [RC] ROUTINE 11/13/19 Breakfast Nothing Per Oral Diet [DIET] Assessment:: As above Plan: As above. Extensive precautions were given to the patient, who is in agreement with the treatment plan.
[2019-11-13 16:16] LABS: PTT,PARTIAL THROMBOPLSTIN TIME 26.7 SEC (24.5-32.8)
[2019-11-13 16:18] LABS: CHLORIDE,CL 100 mmol/L (98-107); SODIUM,NA 135 mmol/L (136-145)
[2019-11-13] MEDS: Sodium Chloride 0.9% 10 ML Syringe FLUSH PRN (16:30)
[2019-11-13] MEDS: Famotidine 20 MG/2 ML SDV IVPUSH ONE (16:31)
[2019-11-13] MEDS: Furosemide 40 MG/4 ML VIAL IVPUSH ONE (16:31)
[2019-11-13] MEDS: Iopamidol 755 Mg/ML 100 ML Bottle IVPUSH ONE (17:20)
== END 2019-11-13 18:10 ==
LOC: LL.ED 15:05
DX: I11.0 Hypertensive heart disease with heart failure (principal); I50.9 Heart failure, unspecified; J44.9 Chronic obstructive pulmonary disease, unspecified; J18.9 Pneumonia, unspecified organism; R79.89 Other specified abnormal findings of blood chemistry; K27.9 Peptic ulcer, site unspecified, unspecified as acute or chronic, without hemorrhage or perforation; D53.9 Nutritional anemia, unspecified; I49.3 Ventricular premature depolarization; R74.0 Nonspecific elevation of levels of transaminase and lactic acid dehydrogenase [LDH]; K74.60 Unspecified cirrhosis of liver; L03.114 Cellulitis of left upper limb; M19.90 Unspecified osteoarthritis, unspecified site; F10.10 Alcohol abuse, uncomplicated; I49.1 Atrial premature depolarization; E88.09 Other disorders of plasma-protein metabolism, not elsewhere classified; Y90.1 Blood alcohol level of 20-39 mg/100 ml; Z88.1 Allergy status to other antibiotic agents; Z88.8 Allergy status to other drugs, medicaments and biological substances; Z87.891 Personal history of nicotine dependence
CPT/HCPCS: 36415; 71045; 71275; 80053; 80307; 82140; 82150; 82247; 82248; 82550; 82553; 83605; 83690; 83735; 83880; 84443; 84484; 85025; 85379; 85610; 85730; 87040; 87804; 93005; 96374; 96375; 99285-25; J1940; J3490; Q9967; U0002

== ENCOUNTER 2019-11-27 14:03 | Emergency (ER) | payer OTHER ==
[2019-11-27] MEDS ORDERED: Famotidine 20 MG/2 ML SDV IVPUSH ONE (14:07)
--- NOTE | 2019-11-27 14:07 | EDM.PDOC ---
ED HPI GENERAL MEDICAL PROBLEM - General Chief Complaint: General Stated Complaint: shortness of breath Time Seen by Provider: 11/27/19 14:03 Source of Information: Reports: Patient, Old Records ([facility] chart/EMR), Other ([place] EMR) History Limitations: Reports: No Limitations - History of Present Illness INITIAL COMMENTS - FREE TEXT/NARRATIVE: The patient was brought to the emergency room via private automobile by his for evaluation of returned moderate to severe dyspnea after the patient was hospitalized at [facility] from 11/12 through 11/17/19 for hepatic failure with secondary severe ascites, CHF, etc.. Note cardiology and GI consultations during that hospitalization with 10 L of ascites removed on . Since discharge from the hospital the patient has noted some increasing abdominal distention, dyspnea, etc., although he does feel that his lymphedema of his legs has improved. He denies any specific pain or discomfort. The patient denies any chest pain/pressure, heart flutter, dizziness, orthostasis, orthopnea, diaphoresis, paresthesias, recent decreased exercise tolerance, or any other anginal-type symptoms, however his overall exercise tolerance is extremely low. No recent history of abdominal pain, heartburn, nausea, diarrhea , melena, gross hematochezia, or any food intolerance, including fatty foods, etc., although some anorexia with last normal bowel movement 3 days ago. He denies any gross hematuria, colic, or other UTI symptoms. The patient also denies any recent fever, wheezing, known exposure to infection, etc. with stable chronic nonproductive cough. Note negative COVID-19 evaluation on . Onset: Gradual Onset Date: 11/25/19 Duration: Getting Worse Location: Reports: Other (No pain) Quality: Reports: Same as Previous Episode Severity: Moderate Improves with: Reports: None Worsens with: Reports: Movement Context: Reports: Other (As above). Denies: Sick Contact, Trauma Associated Symptoms: Reports: Cough (Stable chronic), Loss of Appetite, Shortness of Breath, Weakness (Stable chronic). Denies: Confusion, Chest Pain, Diaphoresis, Fever/Chills, Headaches, Malaise, Nausea/Vomiting, Rash, Seizure, Syncope - Related Data Allergies Allergy/AdvReac Type Severity Reaction Status Date / Time amoxicillin Allergy Nausea Verified 11/27/19 14:49 atorvastatin [From Lipitor] Allergy UNKNOWN Verified 11/27/19 14:49 erythromycin base Allergy UNKNOWN Verified 11/27/19 14:49 Home Meds: Home Meds ALPRAZolam [Alprazolam] 1 tab PO BEDTIME PRN 11/13/19 [History] Aspirin [Adult Low Dose Aspirin EC] 81 mg PO DAILY 11/13/19 [History] Furosemide 40 mg PO BID 11/13/19 [History] Omeprazole 20 mg PO DAILY 11/13/19 [History] Spironolactone [Aldactone] 2 tab PO DAILY 11/13/19 [History] cloNIDine HCL [Clonidine HCl] 1 tab PO BID 11/13/19 [History] Budesonide/Formoterol [Symbicort 160-4.5 MCG] 2 puff INH BID 11/27/19 [History] Cholecalciferol (Vitamin D3) [Vitamin D3] 1 tab PO DAILY 11/27/19 [History] Cyanocobalamin (Vitamin B-12) [B-12] 1 tab PO DAILY 11/27/19 [History] Multivitamin with Minerals [Multiple Vitamin] 1 tab PO DAILY 11/27/19 [History] Mupirocin Oint [Bactroban Oint] 1 g TOP BID 11/27/19 [History] busPIRone [Buspar] 5 mg PO TID 11/27/19 [History] Past Medical History HEENT History: Reports: Allergic Rhinitis, Hard of Hearing, Impaired Vision, Otitis Media, Sinusitis, Other (See Below). Denies: Cataract, Glaucoma, Macular Degeneration, Retinal Detachment Other HEENT History: Recurrent otitis media with no previous history of PE tubes. Chronic allergic rhinitis and sinusitis. History of acute right-sided hearing loss and dizziness in August 2009 with negative workup as below. He does wear glasses. Cardiovascular History: Reports: Arrhythmia, Cardiomyopathy, Heart Failure, Heart Murmur, High Cholesterol, Hypertension, Pulmonary Hypertension, Other ( See Below). Denies: Afib, Aneurysm, Blood Clots/VTE/DVT, CAD, VA, PVD, Syncope Other Cardiovascular History: Moderate to severe mitral valve insufficiency with additional diastolic dysfunction and probable pulmonary hypertension by echocardiogram on 11/15/19. PACs and PVCs. Positive D dimer on 11/13/19 with negative workup as below, including no evidence of PE, intrahepatic/portal vein thrombosis, or DVTs. Respiratory History: Reports: Bronchitis, Recurrent, COPD, Intubation, Previous , Pneumonia, Recurrent, Pulmonary Fibrosis, Other (See Below). Denies: Asthma, Intubation, Difficult, PE, Pneumothorax, Sleep Apnea, TB Other Respiratory History: Left upper lobe [address] scan on 11/12. Gastrointestinal History: Reports: Cholelithiasis, Colon Polyp, Diverticulosis, Fatty Liver, Gastritis, GERD, Hepatitis, PUD, Other (See Below). Denies: Celiac Disease, Chronic Constipation, Chronic Diarrhea, Cirrhosis, Fecal Incontinence, GI Bleed, Helicobacter Pylori, Hiatal Hernia, Inflammatory Bowel Disease, Irritable Bowel Syndrome, Jaundice, Pancreatitis Other Gastrointestinal History: History of duodenal ulcer at age 14. Benign gastric colonic polyp by EGD as below. Benign diminutive polyps in the rectum and mid aspect of the descending colon diagnosed by colonoscopy as below. Colon polyps not sent for pathological review. Sigmoid diverticulosis. Alcohol induced hepatic cirrhosis including nodularity and unknown type of right lobe hepatic nodule with chronic elevated ammonia levels, severe recurrent ascites, anasarca, and history of hepatic coma. Portal hypertension by Abdominal ultrasound on 11/13/19. Previous Chronic LFTs elevation secondary to fatty liver and/or alcohol use. Hepatosplenomegaly. Genitourinary History: Denies: Acute Renal Failure, BPH, Chronic Renal Insuffiency, Renal Calculus, Retention, Urinary, STD, Urinary Incontinence, UTI , Recurrent Musculoskeletal History: Reports: Arthritis, Back Pain, Chronic, Fracture, Neck Pain, Chronic, Osteoarthritis, Other (See Below). Denies: Amputation, Gout, Osteoporosis, RA, SLE Other Musculoskeletal History: Right ankle fracture in 1976 with surgery as below. Moderate left anterior lateral meniscal tear of the knee with additional ruptured popliteal cyst and moderate chondromalacia with no surgery to this point. Neurological History: Reports: Other (See Below). Denies: Alzheimers Disease, Cerebral Aneurysms, Concussion, CVA, Headaches, Chronic, Head Trauma, Migraines , MS, Neuropathy, Peripheral, Parkinson's, Seizure, TIA, Vertigo Other Neuro History: Hepatic coma as above with no previous history of seizure disorder and/or DTs secondary to his alcohol abuse. Benign essential tremor. Psychiatric History: Reports: Addiction, Anxiety, Depression, Other (See Below) . Denies: Abuse, Victim of, ADD, ADHD, Alzheimers Disease, Dementia, Hallucinations, Psych Hospitalization(s), Psychosis, PTSD, Suicide Attempt, Suicidal Ideation Other Psychiatric History: History of alcohol abuse especially since his correction in 2018 as below. Endocrine/Metabolic History: Reports: Hypomagnesemia, Obesity/BMI 30+, Other ( See Below). Denies: Diabetes, Type I, Diabetes, Type II, Diabetes Mellitus, Type 3c, Hypothyroidism, IDDM Other Endocrine/Metabolic History: Hypoalbuminemia. Hematologic History: Reports: Anemia, Other (See Below). Denies: Blood Transfusion(s), Iron Deficiency Other Hematologic History: Macrocytic anemia possibly secondary to alcohol abuse and thiamine deficiency. Immunologic History: Reports: Immunosuppression, Other (See Below). 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 Oncologic (Cancer) History: Reports: None. Denies: Basal Cell Carcinoma, Colon , Hodgkin's Lymphoma, Leukemia, Liver, Lymphoma, Malignant Melanoma, Non-Hodgkin 's Lymphoma, Pancreatic, Prostate, Squamous Cell Carcinoma Dermatologic History: Reports: Venous Stasis Dermatitis. Denies: Eczema, Psoriasis - Infectious Disease History Infectious Disease History: Reports: Chicken Pox, Measles, Mumps. Denies: C- Difficile, Meningitis, Mononucleosis, MRSA, Novel Coronavirus, Pertussis ( Whooping Cough), Rheumatic Fever, Rubella, Scarlet Fever, Shingles, TB, VRE - Past Surgical History Head Surgeries/Procedures: Reports: None HEENT Surgical History: Reports: Adenoidectomy, Oral Surgery, Tonsillectomy, Other (See Below). Denies: Cataract Surgery, Eye Surgery, Laser Surgery, LASIK , Myringotomy w Tube(s), Naso-Sinus Surgery Other HEENT Surgeries/Procedures: [place] teeth extraction x 4 in his 20s. Additional teeth extractions. Cardiovascular Surgical History: Reports: None. Denies: Varicose Respiratory Surgical History: Reports: None. Denies: Thoracentesis GI Surgical History: Reports: Abdominal paracentesis, Cholecystectomy, Colonoscopy, EGD, Polypectomy, Other (See Below). Denies: Appendectomy, Hernia , Abdominal, Hernia, Inguinal, Hernia Repair/Other Other GI Surgeries/Procedures: Paracentesis of 10 L of ascites on 11/16/19. EGD on 11/15/19. Previous EGD and colonoscopy on 06/19/19? Colonoscopy and EGD with excision of benign gastric polyps and benign colonic polyps 2 as above on 06/19; laparoscopic cholecystectomy on 09/16/06. Male Surgical History: Reports: Circumcision. Denies: TURP-Transurethral Resection of Prostate, Vasectomy Other Male Surgeries/Procedures: Circumcision as an . Endocrine Surgical History: Reports: None. Denies: Thyroid Biopsy Neurological Surgical History: Reports: None. Denies: C-Spine, Discectomy, Laminectomy, Lumbar Spine, Sacral Spine, Spinal Fusion, Thoracic Spine Musculoskeletal Surgical History: Reports: Carpal Tunnel, ORIF, Other (See Below ). Denies: Arthroscopic Knee, Arthroscopic Procedure, Ganglion Cyst, Joint Replacement, Shoulder Surgery Other Musculoskeletal Surgeries/Procedures:: Bilateral carpal tunnel release with left-sided carpal tunnel release on 06/04/16 and right-sided carpal tunnel release on 05/07/16. Left ankle surgery secondary to fracture in 1976 with no ORIF? Oncologic Surgical History: Reports: None Dermatological Surgical History: Reports: None - Past Imaging History Past Imaging History: Reports: ALEXANDRA Screen (04/14/10), Cardiac Echo (11/15/19 with findings as above and ejection fraction of greater than 70%), CAT Scan ( Negative CTA of the chest on 11/13/19 for PE with incidental findings as above. Temporal bones bilaterally on 08/13/09.), MRI (Left knee on 09/23/15), Ultrasound (Right upper quadrant ultrasound on 05/13/19 and 09/03/16. Abdominal ultrasound on 11/15/19, 11/13/19 and 01/06/2000.), Venous Doppler (Negative venous Doppler studies of the legs bilaterally on 11/14/19. Left leg studies negative on 04/08/10. ), Other (See Below) (Nerve conduction studies and EMGs on 03/06/15.) Social & Family History - Tobacco Use Smoking Status *Q: Former Smoker Tobacco Use Within Last Twelve Months: Cigarettes Years of Tobacco use: 37 Packs/Tins Daily: 1 Packs/Tins Daily Comment: Started smoking at age 27 with last use on 09/28/19. Used Tobacco, but Quit: Yes Smoking Cessation Information Provided To Patient: No Second Hand Smoke Exposure: No Second Hand Smoke Education Provided: No - Alcohol Use Alcohol Use History: Yes Days Per Week of Alcohol Use: 3 Number of Drinks Per Day: 10 Number of Drinks Per Day Comment: Drinks until intoxicated with hard straight tequila since 2018 with moderate alcohol use prior to that, however the patient denies previous history of DWI, etc. No previous alcohol treatment. Stopped on . Total Drinks Per Week: 30 Alcohol Use in Last Twelve Months: Yes Alcohol Use Frequency: Binges - Recreational Drug Use Recreational Drug Use: No Recreational Drug Type: Denies: Amphetamines (Speed), Cocaine, Heroin, Inhalants (Glues, Solvents, Aerosols), LSD (Acid), Marijuana/Hashish, Methamphetamine, Morphine, Oxycodone - Living Situation & Occupation Living situation: Reports: , with Family Occupation: Retired (From the railroad at age 62, 2018) ED ROS GENERAL - Review of Systems Review Of Systems: Comprehensive ROS is negative, except as noted in HPI. ED EXAM, GENERAL - Physical Exam Exam: See Below Exam Limited By: No Limitations General Appearance: Alert, WD/WN, No Apparent Distress Eye Exam: Bilateral Eye: EOMI, Normal Inspection (No nystagmus. Patient wearing glasses), PERRL, Other (Bilateral scleral icterusmild) Ears: Normal External Exam, Normal Canal, Hearing Grossly Normal, Normal TMs Nose: Normal Inspection, Normal Mucosa, No Blood Throat/Mouth: Normal Inspection, Normal Lips, Normal Teeth (Occasional missing teeth), Normal Gums, Normal Oropharynx, Normal Voice, No Airway Compromise. No : Dysphagia, Perioral Cyanosis Head: Atraumatic, Normocephalic. No: Facial Swelling, Facial Tenderness, Sinus Tenderness Neck: Normal Inspection, Supple, Non-Tender, Full Range of Motion. No: Carotid Bruit, Lymphadenopathy (L), Lymphadenopathy (R), Thyromegaly Respiratory/Chest: No Respiratory Distress, No Accessory Muscle Use, Chest Non- Tender, Decreased Breath Sounds (Right base), Rales (Moderate diffuse bilaterally particularly in the bases). No: Rhonchi, Wheezing, Pleural Rub, Retractions Cardiovascular: Normal Peripheral Pulses, No JVD, No Rub, Systolic Murmur (3/6 JUSTO of the mitral valve), Other (Regular rate, irregular rhythm secondary to sinus arrhythmia). No: No Edema (Dependent edema as below), Gallop/S3, Gallop/ S4, Friction Rub Peripheral Pulses: 1+: Dorsalis Pedis (L) (Difficult to palpate secondary to pedal edema), Dorsalis Pedis (R) (Difficult to palpate secondary to pedal edema) , 2+: Radial (L), Radial (R) GI/Abdominal: Normal Bowel Sounds, Non-Tender, No Abnormal Bruit, No Mass, Distended (Secondary to severe ascites), Hepatomegaly, Splenomegaly. No: Guarding, Rigid, Rebound, Tender, Abnormal Bowel Sounds, Mass (Male) Exam: Deferred Rectal (Males) Exam: Deferred Back Exam: Normal Inspection, Full Range of Motion. No: CVA Tenderness (L), CVA Tenderness (R), Muscle Spasm Extremities: Normal Range of Motion, Non-Tender, Normal Capillary Refill, Pedal Edema (Mild to moderate pitting lymphedema of the lower extremities), Other ( Skin tear with dressing over the right sternal ulnar region. 1.5 cm blister in the interdigital dorsal space of digits #1 and 2 of the right foot. Grade 2 ulcerations 6 cm and 3 cm in diameter over the left lateral malleolus.). No: Kyle's Sign Neurological: Alert, Oriented, CN II-XII Intact, Normal Cognition (Negative), Normal Reflexes (Negative Babinski's), No Motor/Sensory Deficits, Other ( Difficulty walking secondary to generalized weakness. Moderate resting tremor.) Psychiatric: Anxious (Mild), Depressed Mood (Mild) Skin Exam: Warm, Dry, Ecchymosis (Moderate ecchymosis on the forearms bilaterally secondary to previous IVs from recent hospitalization), Rash (Mild anterior venous stasis dermatitis), Wound/Incision (As above). No: Diaphoretic , Petechiae Lymphatic: No Adenopathy EKG INTERPRETATION EKG Date: 11/27/19 Time: 14:10 Rhythm: Other (Moderate sinus arrhythmia with resolution of previous PVCs and PACs) Rate (Beats/Min): 76 [place]: Normal (Neutral cardiac axis with previous left cardiac axis) P-Wave: Present QRS: Normal (0.09 seconds with mild repolarization changes and overall low voltage) ST-T: Normal QT: Normal [place]/PQ Interval: 0.18 seconds. Extreme poor R-wave progression in the anterior leads Comparison: Change From Previous EKG (As above since 11/13/19) Course - Vital Signs Last Recorded V/S: Last Vital Signs Temp 36.2 C 11/27/19 14:30 Pulse 71 11/27/19 15:46 Resp 16 11/27/19 15:46 BP 110/70 11/27/19 15:46 Pulse Ox 93 L 11/27/19 15:46 Vital Signs - 24 hr 11/27/19 11/27/19 11/27/19 14:04 14:20 14:30 Temperature [ 36.3 C 36.2 C Temporal] Pulse, 67 76 70 Peripheral [ Pulse Oximetry] Respiratory 20 18 18 Rate Blood Pressure [Left Upper Arm ] Blood Pressure 123/99 H 136/71 127/85 [Right Upper Arm] O2 Sat by Pulse 94 L 94 L 93 L Oximetry 11/27/19 11/27/19 15:00 15:46 Temperature [ Temporal] Pulse, 67 71 Peripheral [ Pulse Oximetry] Respiratory 20 16 Rate Blood Pressure 121/74 110/70 [Left Upper Arm ] Blood Pressure [Right Upper Arm] O2 Sat by Pulse 94 L 93 L Oximetry - Orders/Labs/Meds Orders: Active Orders 24 hr Category Date Time Status Cardiac Monitoring [RC] . DIRECTED Care 11/27/19 14:07 Active EKG Documentation Completion [RC] ASDIRECTED Care 11/27/19 14:07 Active Oxygen Therapy, ED [RC] PRN Care 11/27/19 14:07 Active Peripheral IV Care [RC] . DIRECTED Care 11/27/19 14:07 Active Pulse Oximetry [RC] CONTINUOUS Care 11/27/19 14:07 Active Up With Assistance [RC] PFP Care 11/27/19 14:07 Active Vital Signs [RC] PFP Care 11/27/19 14:07 Active Nothing per Oral Now Diet [DIET] Diet 11/27/19 Breakfast Active Chest 1V Frontal [CR] Stat Exams 11/27/19 14:07 Taken Sodium Chloride 0.9% [Saline Flush] Med 11/27/19 14:07 Active 10 ml FLUSH ASDIRECTED PRN Obtain Past Medical Record [OM.PC] Urgent Oth 11/27/19 14:07 Active Peripheral IV Insertion Adult [OM.PC] Stat Oth 11/27/19 14:07 Ordered Resuscitation Status Stat Resus Stat 11/27/19 14:07 Ordered Medication Orders Sodium Chloride (Saline Flush) 10 ml FLUSH ASDIRECTED PRN PRN Reason: Keep Vein Open Last Admin: 11/27/19 15:00 Dose: 10 ml Admin: 11/27/19 14:37 Dose: 10 ml Labs: Laboratory Tests 11/27/19 11/27/19 11/27/19 Range/Units 14:30 14:30 14:30 WBC 7.7 (4.0-10.2) K/uL RBC 3.64 L (4.33-5.41) M/uL Hgb 12.2 L (13.1-16.8) g/dL Hct 35.3 L (39.0-49.0) % MCV 97.0 (84.0-98.0) fL MCH 33.5 H (28.2-33.3) pg MCHC 34.6 (31.7-36.0) g/dL RDW 14.5 H (11.2-14.1) % Plt Count 162 (150-350) K/uL Neut % (Auto) 77.7 (45.0-80.0) % Lymph % (Auto) 11.2 (10.0-50.0) % Stearns % (Auto) 9.2 (2.0-14.0) % Eos % (Auto) 1.6 (0.0-5.0) % Baso % (Auto) 0.3 (0.0-2.0) % Neut # (Auto) 5.97 (1.40-7.00) K/uL Lymph # (Auto) 0.86 (0.50-3.50) K/uL Stearns # (Auto) 0.71 (0.00-1.00) K/uL Eos # (Auto) 0.12 (0.00-0.50) K/uL Baso # (Auto) 0.02 (0.00-0.20) K/uL PT 14.0 H (9.5-12.0) SEC INR 1.4 APTT 26.6 (24.5-32.8) SEC Sodium 128 L (136-145) mmol/L Potassium 5.2 H (3.5-5.1) mmol/L Chloride 93 L (98-107) mmol/L Carbon Dioxide 28.8 (21.0-32.0) mmol/L BUN 34 H (7-18) mg/dL Creatinine 1.37 H (0.51-1.17) mg/dL Est Cr Clr Drug Dosing 61.36 mL/min Estimated GFR (MDRD) 53 mL/min Glucose 103 (74-106) mg/dL Lactic Acid (0.4-2.0) mmol/L Uric Acid 7.9 H (2.6-7.2) mg/dL Calcium 9.3 (8.5-10.1) mg/dL Magnesium 2.2 (1.8-2.4) mg/dL Total Bilirubin 2.3 H (0.2-1.0) mg/dL AST 83 H (15-37) U/L ALT 36 (12-78) U/L Alkaline Phosphatase 174 H (46-116) IU/L Ammonia (11-32) umol/L Creatine Kinase 89 (26-308) U/L Creatine Kinase Index 1.3 (0.0-2.5) % CK-MB (CK-2) 1.20 (0.00-3.60) ng/mL Troponin I 0.084 H* (0.000-0.056) ng/mL NT-Pro-B Natriuret Pep 717 H (0-125) pg/mL Total Protein 7.0 (6.4-8.2) g/dL Albumin 2.6 L (3.4-5.0) g/dL Amylase 90 (25-115) U/L Lipase 143 (73-393) U/L TSH, Ultra Sensitive 9.779 H (0.358-3.740) mIU/mL 11/27/19 11/27/19 Range/Units 14:30 14:30 WBC (4.0-10.2) K/uL RBC (4.33-5.41) M/uL Hgb (13.1-16.8) g/dL Hct (39.0-49.0) % MCV (84.0-98.0) fL MCH (28.2-33.3) pg MCHC (31.7-36.0) g/dL RDW (11.2-14.1) % Plt Count (150-350) K/uL Neut % (Auto) (45.0-80.0) % Lymph % (Auto) (10.0-50.0) % Stearns % (Auto) (2.0-14.0) % Eos % (Auto) (0.0-5.0) % Baso % (Auto) (0.0-2.0) % Neut # (Auto) (1.40-7.00) K/uL Lymph # (Auto) (0.50-3.50) K/uL Ste[place]s # (Auto) (0.00-1.00) K/uL Eos # (Auto) (0.00-0.50) K/uL Baso # (Auto) (0.00-0.20) K/uL PT (9.5-12.0) SEC INR APTT (24.5-32.8) SEC Sodium (136-145) mmol/L Potassium (3.5-5.1) mmol/L Chloride (98-107) mmol/L Carbon Dioxide (21.0-32.0) mmol/L BUN (7-18) mg/dL Creatinine (0.51-1.17) mg/dL Est Cr Clr Drug Dosing mL/min Estimated GFR (MDRD) mL/min Glucose (74-106) mg/dL Lactic Acid 2.2 H (0.4-2.0) mmol/L Uric Acid (2.6-7.2) mg/dL Calcium (8.5-10.1) mg/dL Magnesium (1.8-2.4) mg/dL Total Bilirubin (0.2-1.0) mg/dL AST (15-37) U/L ALT (12-78) U/L Alkaline Phosphatase (46-116) IU/L Ammonia 107 H (11-32) umol/L Creatine Kinase (26-308) U/L Creatine Kinase Index (0.0-2.5) % CK-MB (CK-2) (0.00-3.60) ng/mL Troponin I (0.000-0.056) ng/mL NT-Pro-B Natriuret Pep (0-125) pg/mL Total Protein (6.4-8.2) g/dL Albumin (3.4-5.0) g/dL Amylase (25-115) U/L Lipase (73-393) U/L TSH, Ultra Sensitive (0.358-3.740) mIU/mL Meds: Medications Generic Name Dose Route Start Last Admin Trade Name Freq PRN Reason Stop Dose Admin Sodium Chloride 10 ml 11/27/19 14:07 11/27/19 15:00 Saline Flush FLUSH 10 ml ASDIRECTED PRN Administration Keep Vein Open Discontinued Medications Generic Name Dose Route Start Last Admin Trade Name Freq PRN Reason Stop Dose Admin Famotidine 40 mg 11/27/19 14:07 11/27/19 14:37 Pepcid IVPUSH 11/27/19 14:08 40 mg ONETIME ONE Administration Furosemide 60 mg 11/27/19 14:54 11/27/19 15:00 Lasix IVPUSH 11/27/19 14:55 60 mg NOW ONE Administration Neomycin/Polymyxin/Bacitracin 1 each 11/27/19 14:52 11/27/19 14:55 Triple Antibiotic Oint TOP 11/27/19 14:53 1 each ONETIME ONE Administration - Radiology Interpretation Free Text/Narrative:: propagator shows somewhat irregular moderate sinus arrhythmia with average heart rate in the 60s but no PVCs, PACs, etc. X-ray, portable, shows a moderate right-sided pleural effusion with mild to moderate centralized CHF and/or pulmonary hypertension. Pulmonary infiltrates difficult to assess. No pneumothorax. Moderate COPD changes noted. Departure - Departure Time of Disposition: 16:50 Disposition: DC/Tfer to Acute Hospital 02 Condition: Poor Clinical Impression: Elevated lactic acid level, D-dimer, elevated, Peptic reflux disease, Macrocytic anemia, Hypoalbuminemia, Renal insufficiency, Hyperuricemia CHF (congestive heart failure) Qualifiers: Heart failure type: unspecified Heart failure chronicity: acute Qualified Code( s): I50.9 - Heart failure, unspecified COPD (chronic obstructive pulmonary disease) Qualifiers: COPD type: COPD with acute lower respiratory infection Qualified Code(s): J44.0 - Chronic obstructive pulmonary disease with (acute) lower respiratory infection Hepatic cirrhosis Qualifiers: Hepatic cirrhosis type: alcoholic cirrhosis Ascites presence: with ascites Qualified Code(s): K70.31 - Alcoholic cirrhosis of liver with ascites - Discharge Information *PRESCRIPTION DRUG MONITORING PROGRAM REVIEWED*: Not Applicable *COPY OF PRESCRIPTION DRUG MONITORING REPORT IN PATIENT [place]: Not Applicable Referrals: Genevieve Jarvis PA [Primary Care Provider] - Forms: ED Department Discharge, Interfacility Transfer EMTALA Additional Instructions: 1. Your is to drive you to [facility] for direct admission 2. Nothing to eat or drink until otherwise directed by accepting physicians in [place] Sepsis Event Note - Focused Exam Vital Signs: Vital Signs Temp Pulse Resp BP BP Pulse Ox 11/27/19 15:46 71 16 110/70 93 L 11/27/19 15:00 67 20 121/74 94 L 11/27/19 14:30 36.2 C 70 18 127/85 93 L 11/27/19 14:20 76 18 136/71 94 L 11/27/19 14:04 36.3 C 67 20 123/99 H 94 L Date Exam was Performed: 11/27/19 Time Exam was Performed: 16:52 - Problem List & Annotations (1) Hepatic cirrhosis SNOMED Code(s): 01129575 Code(s): K74.60 - UNSPECIFIED CIRRHOSIS OF LIVER Status: Acute Priority: High Current Visit: Yes Onset Date: ~11/13/19 Annotation/Comment:: Severe hepatic cirrhosis with previous hepatic failure and secondary coma. Note recent paracentesis with 10 L of ascites removed during hospitalization at [facility] earlier this month as above. Telephone consultation at 15:[address] Gerardo, emergency room physician at [facility], who does accept the patient for direct admission into their facility, with no further treatment recommendations given that he is aware of the patient's request of transport to that facility by private automobile with his . Patient transferred with saline lock in place. Consider permanent paracentesis catheter placement for as needed drainage. Note significant elevated persistent ammonia levels. Consider lactulose, etc. Qualifiers: Hepatic cirrhosis type: alcoholic cirrhosis Ascites presence: with ascites Qualified Code(s): K70.31 - Alcoholic cirrhosis of liver with ascites (2) CHF (congestive heart failure) SNOMED Code(s): 38935423 Code(s): I50.9 - HEART FAILURE, UNSPECIFIED Status: Acute Priority: High Current Visit: Yes Onset Date: 11/13/19 Annotation/Comment:: CHF with concomitant ascites with no chest pain or true anginal type symptoms. Chest pain protocol was not initiated in the emergency room secondary to absence of anginal complaints. No EKG changes consistent with ischemia with normal cardiac enzymes with exception of mildly elevated troponin I, secondary to his CHF. Consider cardiology consultation, rule out of acute VA, etc. by accepting providers with recent cardiology consultation in their facility earlier this month as above. Qualifiers: Heart failure type: unspecified Heart failure chronicity: acute Qualified Code(s): I50.9 - Heart failure, unspecified (3) COPD (chronic obstructive pulmonary disease) SNOMED Code(s): 85711011 Code(s): J44.9 - CHRONIC OBSTRUCTIVE PULMONARY DISEASE, UNSPECIFIED Status : Acute Priority: High Current Visit: Yes Onset Date: ~11/13/19 Annotation/Comment:: No recent fever or bronchitic type symptoms. COVID-19 evaluation was collected as facility on 11/12 and was negative. Consider PFTs depending on his clinical course. Note previous history of tobacco abuse with recent tobacco cessation. Note mild lactic acid elevation with no evidence of sepsis. Recommend repeat lactic acid level in about 34 hours per accepting providers. No IV fluids or antibiotics were initiated secondary to patient's CHF , etc. Qualifiers: COPD type: COPD with acute lower respiratory infection Qualified Code(s): J44.0 - Chronic obstructive pulmonary disease with (acute) lower respiratory infection (4) D-dimer, elevated SNOMED Code(s): 866540415 Code(s): R79.89 - OTHER SPECIFIED ABNORMAL FINDINGS OF BLOOD CHEMISTRY Status: Acute Priority: High Current Visit: Yes Onset Date: 11/13/19 Annotation/Comment:: Negative previous workup as above. Continue to observe closely by accepting providers. (5) Elevated lactic acid level SNOMED Code(s): 4219231 Code(s): R79.89 - OTHER SPECIFIED ABNORMAL FINDINGS OF BLOOD CHEMISTRY Status: Acute Priority: High Current Visit: Yes Onset Date: 11/13/19 Annotation/Comment:: As above. No clinical evidence of sepsis. (6) Hyperuricemia SNOMED Code(s): 94429068 Code(s): E79.0 - HYPERURICEMIA W/O SIGNS OF INFLAM ARTHRIT AND TOPHACEOUS DIS Status: Acute Priority: Medium Current Visit: Yes Onset Date: Annotation/Comment:: Observe patient's renal status closely. Note recent Lasix therapy. IV Lasix also given in the emergency room today. (7) Hypoalbuminemia SNOMED Code(s): 652421286 Code(s): E88.09 - OTH DISORDERS OF PLASMA-PROTEIN METABOLISM, NEC Status: Acute Priority: Medium Current Visit: Yes Annotation/Comment:: Note hepatic cirrhosis. Continue to observe closely by accepting providers. (8) Renal insufficiency SNOMED Code(s): 955657426, 072475506 Code(s): N28.9 - DISORDER OF KIDNEY AND URETER, UNSPECIFIED Status: Acute Priority: Medium Current Visit: Yes Onset Date: 11/27/19 Annotation/ Comment:: Continue to observe closely by accepting providers. Note hepatic disease as above. (9) Macrocytic anemia SNOMED Code(s): 53706177 Code(s): D53.9 - NUTRITIONAL ANEMIA, UNSPECIFIED Status: Chronic Priority : Medium Current Visit: Yes Annotation/Comment:: Known history of macrocytic anemia, which is stable by our hospital records. Recent ferritin and iron levels were elevated with recent decreased TIBC, however. Note hypoalbuminemia and alcohol abuse history as above. Further workup by accepting providers, including possible thiamine levels, etc. (10) Peptic reflux disease SNOMED Code(s): 595381415 Code(s): K21.9 - GASTRO-ESOPHAGEAL REFLUX DISEASE WITHOUT ESOPHAGITIS Status: Chronic Priority: Medium Current Visit: Yes Annotation/Comment:: High-dose IV Pepcid given as GI prophylaxis with no recent abdominal complaints or evidence of GI bleed. (11) Hypertension SNOMED Code(s): 37975152 Code(s): I10 - ESSENTIAL (PRIMARY) HYPERTENSION Status: Chronic Priority : High Current Visit: Yes Annotation/Comment:: Blood pressures were stable in the emergency room. Continue to observe closely by accepting providers. Qualifiers: Hypertension type: essential hypertension Qualified Code(s): I10 - Essential (primary) hypertension - Problem List Review Problem List Initiated/Reviewed/Updated: Yes - My Orders Last 24 Hours: My Active Orders 11/27/19 14:07 Cardiac Monitoring [RC] . DIRECTED EKG Documentation Completion [RC] ASDIRECTED Oxygen Therapy, ED [RC] PRN Peripheral IV Care [RC] . DIRECTED Pulse Oximetry [RC] CONTINUOUS Up With Assistance [RC] PFP Vital Signs [RC] PFP Chest 1V Frontal [CR] Stat Sodium Chloride 0.9% [Saline Flush] 10 ml FLUSH ASDIRECTED PRN Obtain Past Medical Record [OM.PC] Urgent Peripheral IV Insertion Adult [OM.PC] Stat Resuscitation Status Stat 11/27/19 Breakfast Nothing per Oral Now Diet [DIET] - Assessment/Plan Last 24 Hours: My Active Orders 11/27/19 14:07 Cardiac Monitoring [RC] . DIRECTED EKG Documentation Completion [RC] ASDIRECTED Oxygen Therapy, ED [RC] PRN Peripheral IV Care [RC] . DIRECTED Pulse Oximetry [RC] CONTINUOUS Up With Assistance [RC] PFP Vital Signs [RC] PFP Chest 1V Frontal [CR] Stat Sodium Chloride 0.9% [Saline Flush] 10 ml FLUSH ASDIRECTED PRN Obtain Past Medical Record [OM.PC] Urgent Peripheral IV Insertion Adult [OM.PC] Stat Resuscitation Status Stat 11/27/19 Breakfast Nothing per Oral Now Diet [DIET] Assessment:: As above Plan: As above. Extensive precautions were given to the patient, who is in agreement with the treatment plan. See Patient Instructions for further treatment and plan.
[2019-11-27] MEDS: Sodium Chloride 0.9% 10 ML Syringe FLUSH PRN ×2 (14:37→15:00)
[2019-11-27] MEDS ORDERED: Bacitracin/Neomycin/Polymyxin B Oint 0.9 GM U/D Packet TOP ONE (14:52)
[2019-11-27] MEDS ORDERED: Furosemide 40 MG/4 ML VIAL IVPUSH ONE (14:54)
[2019-11-27 15:05] LABS: PTT,PARTIAL THROMBOPLSTIN TIME 26.6 SEC (24.5-32.8)
== END 2019-11-27 16:50 ==
LOC: LL.ED 14:03
DX: K70.31 Alcoholic cirrhosis of liver with ascites (principal); I11.0 Hypertensive heart disease with heart failure; I50.9 Heart failure, unspecified; J44.9 Chronic obstructive pulmonary disease, unspecified; R79.89 Other specified abnormal findings of blood chemistry; R74.0 Nonspecific elevation of levels of transaminase and lactic acid dehydrogenase [LDH]; K27.9 Peptic ulcer, site unspecified, unspecified as acute or chronic, without hemorrhage or perforation; D53.9 Nutritional anemia, unspecified; N28.9 Disorder of kidney and ureter, unspecified; E88.09 Other disorders of plasma-protein metabolism, not elsewhere classified; K21.9 Gastro-esophageal reflux disease without esophagitis; M19.90 Unspecified osteoarthritis, unspecified site; F41.9 Anxiety disorder, unspecified; F32.9 Major depressive disorder, single episode, unspecified; E66.9 Obesity, unspecified; Z68.35 Body mass index [BMI] 35.0-35.9, adult; Z88.8 Allergy status to other drugs, medicaments and biological substances; Z88.1 Allergy status to other antibiotic agents; Z79.899 Other long term (current) drug therapy; Z79.82 Long term (current) use of aspirin; Z87.891 Personal history of nicotine dependence
CPT/HCPCS: 36415; 71045; 80053; 82140; 82150; 82550; 82553; 83605; 83690; 83735; 83880; 84443; 84484; 84550; 85025; 85610; 85730; 93005; 96374; 96375; 99285; J1940; J3490

== ENCOUNTER 2019-12-03 10:22 | Emergency (ER) | payer OTHER ==
[2019-12-03] MEDS ORDERED: Famotidine 20 MG/2 ML SDV IVPUSH ONE (10:29)
[2019-12-03] MEDS ORDERED: Sodium Chloride 0.9% 10 ML Syringe FLUSH PRN (10:29)
[2019-12-03] MEDS ORDERED: Pantoprazole 40 MG Vial IVPUSH ONE (10:29)
--- NOTE | 2019-12-03 10:29 | EDM.PDOC ---
ED HPI GENERAL MEDICAL PROBLEM - General Chief Complaint: General Stated Complaint: unresponsiveness, chronic liver failure Time Seen by Provider: 12/03/19 10:22 Source of Information: Reports: Patient, EMS, EMS Notes Reviewed (Not available at time of dictation), Old Records ([facility] chart/EMR), Other ([facility] EMR) History Limitations: Reports: Altered Mental Status - History of Present Illness INITIAL COMMENTS - FREE TEXT/NARRATIVE: Patient was brought to the emergency room via ambulance by extrusion technician accompaniment for evaluation of increasing confusion since yesterday evening with additional severe sedation and severe weakness since this morning. Patient' s did initially call [facility] with 911 subsequently called for initial evaluation in our facility. No history of fall, head injury, chest pain, anginal complaints, abdominal pain, fever, etc. from limited history. Note that the patient is in end-stage hepatic failure with multiple hospitalizations at [facility] in [place] as below, including paracentesis, etc.. Patient was able to take his medications yesterday evening, however no medications this morning to this point. No treatment by the paramedics in route. No apparent specific pain or discomfort. Onset: Today, Gradual, Unknown/Unsure Onset Date: 12/03/19 Duration: Getting Worse Location: Reports: Other (As above) Quality: Reports: Same as Previous Episode Severity: Severe Worsens with: Reports: None Context: Reports: Other (As above). Denies: Sick Contact, Trauma Associated Symptoms: Reports: Confusion, Malaise, Weakness. Denies: Chest Pain , Cough, Diaphoresis, Fever/Chills, Headaches, Nausea/Vomiting, Shortness of Breath Treatments ORAL AND MAXILLOFACIAL SURGERY: Reports: Other (see below) (None) - Related Data Allergies Allergy/AdvReac Type Severity Reaction Status Date / Time amoxicillin Allergy Nausea Verified 12/03/19 10:38 atorvastatin [From Lipitor] Allergy UNKNOWN Verified 12/03/19 10:38 erythromycin base Allergy UNKNOWN Verified 12/03/19 10:38 Home Meds: Home Meds ALPRAZolam [Alprazolam] 1 tab PO BEDTIME PRN 11/13/19 [History] Aspirin [Adult Low Dose Aspirin EC] 81 mg PO DAILY 11/13/19 [History] Furosemide 40 mg PO BID 11/13/19 [History] Omeprazole 20 mg PO DAILY 11/13/19 [History] Spironolactone [Aldactone] 2 tab PO DAILY 11/13/19 [History] cloNIDine HCL [Clonidine HCl] 1 tab PO BID 11/13/19 [History] Budesonide/Formoterol [Symbicort 160-4.5 MCG] 2 puff INH BID 11/27/19 [History] Cholecalciferol (Vitamin D3) [Vitamin D3] 1 tab PO DAILY 11/27/19 [History] Cyanocobalamin (Vitamin B-12) [B-12] 1 tab PO DAILY 11/27/19 [History] Multivitamin with Minerals [Multiple Vitamin] 1 tab PO DAILY 11/27/19 [History] Mupirocin Oint [Bactroban Oint] 1 g TOP BID 11/27/19 [History] busPIRone [Buspar] 5 mg PO TID 11/27/19 [History] Past Medical History HEENT History: Reports: Allergic Rhinitis, Hard of Hearing, Impaired Vision, Otitis Media, Sinusitis, Other (See Below). Denies: Cataract, Glaucoma, Macular Degeneration, Retinal Detachment Other HEENT History: Recurrent otitis media with no previous history of PE tubes. Chronic allergic rhinitis and sinusitis. History of acute right-sided hearing loss and dizziness in August 2009 with negative workup as below. He does wear glasses. Cardiovascular History: Reports: Arrhythmia, Cardiomyopathy, Heart Failure, Heart Murmur, High Cholesterol, Hypertension, Pulmonary Hypertension, Other ( See Below). Denies: Afib, Aneurysm, Blood Clots/VTE/DVT, CAD, HI, PVD, Syncope Other Cardiovascular History: Moderate to severe mitral valve insufficiency with additional diastolic dysfunction and probable pulmonary hypertension by echocardiogram on 11/15/19. PACs and PVCs. Positive D dimer on 11/13/19 with negative workup as below, including no evidence of PE, intrahepatic/portal vein thrombosis, or DVTs. Respiratory History: Reports: Bronchitis, Recurrent, COPD, Intubation, Previous , Pneumonia, Recurrent, Pulmonary Fibrosis, Other (See Below). Denies: Asthma, Intubation, Difficult, PE, Pneumothorax, Sleep Apnea, TB Other Respiratory History: Left upper lobe [address] scan on 11/12. Gastrointestinal History: Reports: Cholelithiasis, Colon Polyp, Diverticulosis, Fatty Liver, Gastritis, GERD, Hepatitis, PUD, Other (See Below). Denies: Celiac Disease, Chronic Constipation, Chronic Diarrhea, Cirrhosis, Fecal Incontinence, GI Bleed, Helicobacter Pylori, Hiatal Hernia, Inflammatory Bowel Disease, Irritable Bowel Syndrome, Jaundice, Pancreatitis Other Gastrointestinal History: History of duodenal ulcer at age 14. Benign gastric colonic polyp by EGD as below. Benign diminutive polyps in the rectum and mid aspect of the descending colon diagnosed by colonoscopy as below. Colon polyps not sent for pathological review. Sigmoid diverticulosis. Alcohol induced hepatic cirrhosis including nodularity and unknown type of right lobe hepatic nodule with chronic elevated ammonia levels, severe recurrent ascites, anasarca, and history of hepatic coma. Note paracentesis of 10 L of ascites during hospitalization from 11/12 through 11/17/19 with additional 14 L of fluid obtained during hospitalization from 11/26 through 11/29/19. Portal hypertension by Abdominal ultrasound on 11/13/19. Previous Chronic LFTs elevation secondary to fatty liver and/or alcohol use. Hepatosplenomegaly. Genitourinary History: Reports: Chronic Renal Insuffiency. Denies: Acute Renal Failure, BPH, Renal Calculus, Retention, Urinary, STD, Urinary Incontinence, UTI , Recurrent Musculoskeletal History: Reports: Arthritis, Back Pain, Chronic, Fracture, Neck Pain, Chronic, Osteoarthritis, Other (See Below). Denies: Amputation, Gout, Osteoporosis, RA, SLE Other Musculoskeletal History: Right ankle fracture in 1976 with surgery as below. Moderate left anterior lateral meniscal tear of the knee with additional ruptured popliteal cyst and moderate chondromalacia with no surgery to this point. Neurological History: Reports: Other (See Below). Denies: Alzheimers Disease, Cerebral Aneurysms, Concussion, CVA, Headaches, Chronic, Head Trauma, Migraines , MS, Neuropathy, Peripheral, Parkinson's, Seizure, TIA, Vertigo Other Neuro History: Hepatic coma as above with no previous history of seizure disorder and/or DTs secondary to his alcohol abuse. Benign essential tremor. Psychiatric History: Reports: Addiction, Anxiety, Depression, Other (See Below) . Denies: Abuse, Victim of, ADD, ADHD, Alzheimers Disease, Dementia, Hallucinations, Psych Hospitalization(s), Psychosis, PTSD, Suicide Attempt, Suicidal Ideation Other Psychiatric History: History of alcohol abuse especially since his [facility] in 2018 as below. Endocrine/Metabolic History: Reports: Hypomagnesemia, Obesity/BMI 30+, Other ( See Below). Denies: Diabetes, Type I, Diabetes, Type II, Diabetes Mellitus, Type 3c, Hypothyroidism, IDDM Other Endocrine/Metabolic History: Hypoalbuminemia. Hematologic History: Reports: Anemia, Other (See Below). Denies: Blood Transfusion(s), Iron Deficiency Other Hematologic History: Macrocytic anemia possibly secondary to alcohol abuse and thiamine deficiency. Immunologic History: Reports: Immunosuppression, Other (See Below). 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 Oncologic (Cancer) History: Reports: None. Denies: Basal Cell Carcinoma, Colon , Hodgkin's Lymphoma, Leukemia, Liver, Lymphoma, Malignant Melanoma, Non-Hodgkin 's Lymphoma, Pancreatic, Prostate, Squamous Cell Carcinoma Dermatologic History: Reports: Venous Stasis Dermatitis. Denies: Eczema, Psoriasis - Infectious Disease History Infectious Disease History: Reports: Chicken Pox, Measles, Mumps. Denies: C- Difficile, Meningitis, Mononucleosis, MRSA, Novel Coronavirus, Pertussis ( Whooping Cough), Rheumatic Fever, Rubella, Scarlet Fever, Shingles, TB, VRE - Past Surgical History Head Surgeries/Procedures: Reports: None HEENT Surgical History: Reports: Adenoidectomy, Oral Surgery, Tonsillectomy, Other (See Below). Denies: Cataract Surgery, Eye Surgery, Laser Surgery, LASIK , Myringotomy w Tube(s), Naso-Sinus Surgery Other HEENT Surgeries/Procedures: [place] teeth extraction x 4 in his 20s. Additional teeth extractions. Cardiovascular Surgical History: Reports: None. Denies: Varicose Respiratory Surgical History: Reports: None. Denies: Thoracentesis GI Surgical History: Reports: Abdominal paracentesis, Cholecystectomy, Colonoscopy, EGD, Polypectomy, Other (See Below). Denies: Appendectomy, Hernia , Abdominal, Hernia, Inguinal, Hernia Repair/Other Other GI Surgeries/Procedures: Paracentesis of 10 L of ascites on 11/16/19 with 14 L of ascites removed on 11/28/19. EGD on 11/15/19. Previous EGD and colonoscopy on 06/19/19? Colonoscopy and EGD with excision of benign gastric polyps and benign colonic polyps 2 as above on 06/19/10; laparoscopic cholecystectomy on 09/16/06. Male Surgical History: Reports: Circumcision. Denies: TURP-Transurethral Resection of Prostate, Vasectomy Other Male Surgeries/Procedures: Circumcision as an infant. Endocrine Surgical History: Reports: None. Denies: Thyroid Biopsy Neurological Surgical History: Reports: None. Denies: C-Spine, Discectomy, Laminectomy, Lumbar Spine, Sacral Spine, Spinal Fusion, Thoracic Spine Musculoskeletal Surgical History: Reports: Carpal Tunnel, ORIF, Other (See Below ). Denies: Arthroscopic Knee, Arthroscopic Procedure, Ganglion Cyst, Joint Replacement, Shoulder Surgery Other Musculoskeletal Surgeries/Procedures:: Bilateral carpal tunnel release with left-sided carpal tunnel release on 06/04/16 and right-sided carpal tunnel release on 05/07/16. Left ankle surgery secondary to fracture in 1976 with no ORIF? Oncologic Surgical History: Reports: None Dermatological Surgical History: Reports: None - Past Imaging History Past Imaging History: Reports: ALEXANDRA Screen (04/14/10), Cardiac Echo (11/15/19 with findings as above and ejection fraction of greater than 70%), CAT Scan ( Negative CTA of the chest on 11/13/19 for PE with incidental findings as above. Temporal bones bilaterally on 08/13/09.), MRI (Left knee on 09/23/15), Ultrasound (Right upper quadrant ultrasound on 05/13/19 and 09/03/16. Abdominal ultrasound on 11/15/19, 11/13/19 and 01/06/2000.), Venous Doppler (Negative venous Doppler studies of the legs bilaterally on 11/14/19. Left leg studies negative on 04/08/10. ), Other (See Below) (Nerve conduction studies and EMGs on 03/06/15.) Social & Family History - Living Situation & Occupation Living situation: Reports: , with Family Occupation: Retired (From the railroad at age 62, 2018) ED ROS GENERAL - Review of Systems Review Of Systems: Unable To Obtain Reason Not Obtained: Patient sedation otherwise indirect history from extrusion technician ED EXAM, GENERAL - Physical Exam Exam: See Below Exam Limited By: Altered Mental Status General Appearance: Lethargic Eye Exam: Left Eye: EOMI, PERRL, Bilateral Eye: Other (Mild bilateral scleral icterus) Ears: Normal External Exam, Normal Canal, Hearing Grossly Normal, Normal TMs Nose: Normal Inspection, Normal Mucosa, No Blood Throat/Mouth: Normal Lips, Normal Teeth, Normal Gums, Normal Voice, No Airway Compromise. No: Normal Oropharynx (Dry oral mucosa), Dysphagia, Inflammation, Perioral Cyanosis Head: Atraumatic, Normocephalic. No: Facial Swelling, Facial Tenderness, Sinus Tenderness Neck: Normal Inspection, Supple, Non-Tender, Full Range of Motion. No: Lymphadenopathy (L), Lymphadenopathy (R), Thyromegaly Respiratory/Chest: No Accessory Muscle Use, Decreased Breath Sounds (Bases bilaterally), Rales (Mild bilateral basilar). No: Rhonchi, Wheezing, Pleural Rub, Retractions Cardiovascular: Normal Peripheral Pulses, Regular Rate, Rhythm, No Gallop, No JVD, No Murmur, No Rub, Systolic Murmur (Stable 3/6 JUSTO of the mitral valve), Other (No extrasystoles at time of exam). No: No Edema (Dependent edema as below.), Gallop/S3, Gallop/S4, Extra Beats, Friction Rub Peripheral Pulses: 1+: Dorsalis Pedis (L), Dorsalis Pedis (R), 2+: Radial (L), Radial (R) GI/Abdominal: Normal Bowel Sounds, Non-Tender, Pelvis Stable, Distended ( Secondary to severe ascites), Hepatomegaly, Splenomegaly, Other (Stool incontinence). No: Guarding, Rebound (Male) Exam: Deferred Rectal (Males) Exam: Deferred Back Exam: Normal Inspection, Full Range of Motion. No: CVA Tenderness (L), CVA Tenderness (R), Muscle Spasm Extremities: Non-Tender, Pedal Edema (+2 pitting pedal/pretibial edema), Other ( Multiple skin tears old and new with dressings with in place; multiple areas of ecchymosis and petechiae). No: Kyle's Sign Neurological: Slow to Respond, Other (Lethargic, negative Babinski's with patient not able to perform complete neurological exam, severe resting tremor) Psychiatric: Normal Affect, Normal Mood Skin Exam: Ecchymosis (As above), Petechiae (As above), Wound/Incision (As above ) EKG INTERPRETATION EKG Date: 12/03/19 Time: 12:34 Rhythm: Other (Noisy baseline with suboptimal EKG secondary to tremor possible PVCs) Rate (Beats/Min): 78 [place]: Normal (Left) P-Wave: Present (0.17 seconds) QRS: Normal (0.07 seconds) ST-T: Other (Noisy baseline with nonspecific ST changes) QT: Normal KS/PQ Interval: 0.17 seconds Comparison: No Change (Since last EKG on 11/27/19) EKG Interpretation Comments: 1. No acute ischemic changes 2. Suboptimal EKG secondary to noisy baseline as above Course - Vital Signs Last Recorded V/S: Last Vital Signs Temp 36.5 C 12/03/19 10:25 Pulse 79 12/03/19 12:45 Resp 20 12/03/19 12:45 BP 128/97 H 12/03/19 12:45 Pulse Ox 94 L 12/03/19 12:45 Vital Signs - 24 hr 12/03/19 12/03/19 12/03/19 10:25 10:39 11:09 Temperature [ 36.5 C Temporal] Pulse, 87 79 78 Peripheral [ Pulse Oximetry] Respiratory 15 16 17 Rate Blood Pressure 135/87 122/83 117/75 [Right Upper Arm] O2 Sat by Pulse 95 95 97 Oximetry 12/03/19 12/03/19 12/03/19 11:44 12:11 12:45 Temperature [ Temporal] Pulse, 101 H 97 79 Peripheral [ Pulse Oximetry] Respiratory 21 H 15 20 Rate Blood Pressure 136/98 H 108/92 H 128/97 H [Right Upper Arm] O2 Sat by Pulse 97 97 94 L Oximetry - Orders/Labs/Meds Orders: Active Orders 24 hr Category Date Time Status Cardiac Monitoring [RC] . DIRECTED Care 12/03/19 10:33 Active EKG Documentation Completion [RC] ASDIRECTED Care 12/03/19 11:38 Active Peripheral IV Care [RC] . DIRECTED Care 12/03/19 10:30 Active Nothing Per Oral Diet [DIET] Diet 12/03/19 Breakfast Active Sodium Chloride 0.9% [Saline Flush] Med 12/03/19 10:29 Active 10 ml FLUSH ASDIRECTED PRN Obtain Past Medical Record [OM.PC] Urgent Oth 12/03/19 10:29 Active Peripheral IV Insertion Adult [OM.PC] Stat Oth 12/03/19 10:29 Ordered Resuscitation Status Stat Resus Stat 12/03/19 10:29 Ordered EKG 12 Lead [EK] Stat Ther 12/03/19 11:37 Ordered Medication Orders Sodium Chloride (Saline Flush) 10 ml FLUSH ASDIRECTED PRN PRN Reason: Keep Vein Open Last Admin: 12/03/19 11:27 Dose: 10 ml Labs: Laboratory Tests 12/03/19 12/03/19 12/03/19 Range/Units 10:40 10:40 10:40 WBC 8.4 (4.0-10.2) K/uL RBC 3.91 L (4.33-5.41) M/uL Hgb 13.0 L (13.1-16.8) g/dL Hct 36.8 L (39.0-49.0) % MCV 94.1 (84.0-98.0) fL MCH 33.2 (28.2-33.3) pg MCHC 35.3 (31.7-36.0) g/dL RDW 14.1 (11.2-14.1) % Plt Count 165 (150-350) K/uL Neut % (Auto) 78.0 (45.0-80.0) % Lymph % (Auto) 11.3 (10.0-50.0) % Mineral % (Auto) 9.6 (2.0-14.0) % Eos % (Auto) 1.0 (0.0-5.0) % Baso % (Auto) 0.1 (0.0-2.0) % Neut # (Auto) 6.56 (1.40-7.00) K/uL Lymph # (Auto) 0.95 (0.50-3.50) K/uL Mineral # (Auto) 0.81 (0.00-1.00) K/uL Eos # (Auto) 0.08 (0.00-0.50) K/uL Baso # (Auto) 0.01 (0.00-0.20) K/uL PT 13.7 H (9.5-12.0) SEC INR 1.4 APTT 26.7 (24.5-32.8) SEC Sodium (136-145) mmol/L Potassium (3.5-5.1) mmol/L Chloride (98-107) mmol/L Carbon Dioxide (21.0-32.0) mmol/L BUN (7-18) mg/dL Creatinine (0.51-1.17) mg/dL Est Cr Clr Drug Dosing Estimated GFR (MDRD) mL/min Glucose (74-106) mg/dL Lactic Acid (0.4-2.0) mmol/L Uric Acid (2.6-7.2) mg/dL Calcium (8.5-10.1) mg/dL Magnesium (1.8-2.4) mg/dL Total Bilirubin (0.2-1.0) mg/dL AST (15-37) U/L ALT (12-78) U/L Alkaline Phosphatase (46-116) IU/L Ammonia (11-32) umol/L Creatine Kinase (26-308) U/L Creatine Kinase Index (0.0-2.5) % CK-MB (CK-2) (0.00-3.60) ng/mL Troponin I (0.000-0.056) ng/mL NT-Pro-B Natriuret Pep (0-125) pg/mL Total Protein (6.4-8.2) g/dL Albumin (3.4-5.0) g/dL Amylase 92 (25-115) U/L Lipase (73-393) U/L Ethyl Alcohol (0.000-0.080) g/dL 12/03/19 12/03/19 12/03/19 Range/Units 10:40 10:40 10:40 WBC (4.0-10.2) K/uL RBC (4.33-5.41) M/uL Hgb (13.1-16.8) g/dL Hct (39.0-49.0) % MCV (84.0-98.0) fL MCH (28.2-33.3) pg MCHC (31.7-36.0) g/dL RDW (11.2-14.1) % Plt Count (150-350) K/uL Neut % (Auto) (45.0-80.0) % Lymph % (Auto) (10.0-50.0) % Mineral % (Auto) (2.0-14.0) % Eos % (Auto) (0.0-5.0) % Baso % (Auto) (0.0-2.0) % Neut # (Auto) (1.40-7.00) K/uL Lymph # (Auto) (0.50-3.50) K/uL Mineral # (Auto) (0.00-1.00) K/uL Eos # (Auto) (0.00-0.50) K/uL Baso # (Auto) (0.00-0.20) K/uL PT (9.5-12.0) SEC INR APTT (24.5-32.8) SEC Sodium 128 L (136-145) mmol/L Potassium 5.5 H (3.5-5.1) mmol/L Chloride 93 L (98-107) mmol/L Carbon Dioxide 27.9 (21.0-32.0) mmol/L BUN 41 H (7-18) mg/dL Creatinine 1.47 H (0.51-1.17) mg/dL Est Cr Clr Drug Dosing TNP Estimated GFR (MDRD) 49 mL/min Glucose 114 H (74-106) mg/dL Lactic Acid 2.9 H (0.4-2.0) mmol/L Uric Acid 8.4 H (2.6-7.2) mg/dL Calcium 9.3 (8.5-10.1) mg/dL Magnesium 2.1 (1.8-2.4) mg/dL Total Bilirubin 2.6 H (0.2-1.0) mg/dL AST 83 H (15-37) U/L ALT 41 (12-78) U/L Alkaline Phosphatase 173 H (46-116) IU/L Ammonia 180 H (11-32) umol/L Creatine Kinase 95 (26-308) U/L Creatine Kinase Index 2.1 (0.0-2.5) % CK-MB (CK-2) 2.00 (0.00-3.60) ng/mL Troponin I 0.125 H* (0.000-0.056) ng/mL NT-Pro-B Natriuret Pep 869 H (0-125) pg/mL Total Protein 6.8 (6.4-8.2) g/dL Albumin 2.7 L (3.4-5.0) g/dL Amylase (25-115) U/L Lipase 146 (73-393) U/L Ethyl Alcohol 0.000 (0.000-0.080) g/dL Meds: Medications Generic Name Dose Route Start Last Admin Trade Name Freq PRN Reason Stop Dose Admin Sodium Chloride 10 ml 12/03/19 10:29 12/03/19 11:27 Saline Flush FLUSH 10 ml ASDIRECTED PRN Administration Keep Vein Open Discontinued Medications Generic Name Dose Route Start Last Admin Trade Name Cora PRN Reason Stop Dose Admin Famotidine 40 mg 12/03/19 10:29 12/03/19 11:28 Pepcid IVPUSH 12/03/19 10:30 40 mg ONETIME ONE Administration Furosemide 60 mg 12/03/19 11:38 12/03/19 12:09 Lasix IVPUSH 12/03/19 11:39 60 mg NOW ONE Administration Lorazepam 0.5 mg 12/03/19 11:44 12/03/19 12:09 Ativan IVPUSH 12/03/19 11:45 0.5 mg ONETIME ONE Administration Pantoprazole Sodium 40 mg 12/03/19 10:29 12/03/19 11:26 Protonix Iv IVPUSH 12/03/19 10:30 40 mg ONETIME ONE Administration - Radiology Interpretation Free Text/Narrative:: secured entrance monitor shows normal sinus rhythm in the 70s to 80s with very occasional PVCs and PACs, however no other arrhythmia Departure - Departure Time of Disposition: 12:55 Disposition: DC/Tfer to [facility] 02 Condition: Critical Clinical Impression: Renal insufficiency, PAC (premature atrial contraction), PVCs (premature ventricular contractions), Peptic reflux disease, Need for comfort care, Hypoalbuminemia, Elevated lactic acid level, Hyperuricemia Hepatic cirrhosis Qualifiers: Hepatic cirrhosis type: alcoholic cirrhosis Ascites presence: with ascites Qualified Code(s): K70.31 - Alcoholic cirrhosis of liver with ascites Hypertension Qualifiers: Hypertension type: essential hypertension Qualified Code(s): I10 - Essential ( primary) hypertension COPD (chronic obstructive pulmonary disease) Qualifiers: COPD type: COPD with acute lower respiratory infection Qualified Code(s): J44.0 - Chronic obstructive pulmonary disease with (acute) lower respiratory infection CHF (congestive heart failure) Qualifiers: Heart failure type: combined systolic and diastolic Heart failure chronicity: acute Qualified Code(s): I50.41 - Acute combined systolic (congestive) and diastolic (congestive) heart failure - Discharge Information *PRESCRIPTION DRUG MONITORING PROGRAM REVIEWED*: Not Applicable *COPY OF PRESCRIPTION DRUG MONITORING REPORT IN PATIENT [place]: Not Applicable Referrals: PCP,None [Primary Care Provider] - Forms: ED Department Discharge, Interfacility Transfer EMTALA Care Plan Goals: Ambulance transfer to [place] as below Sepsis Event Note - Focused Exam Vital Signs: Vital Signs Temp Pulse Resp BP Pulse Ox 12/03/19 12:45 79 20 128/97 H 94 L 12/03/19 12:11 97 15 108/92 H 97 12/03/19 11:44 101 H 21 H 136/98 H 97 12/03/19 11:09 78 17 117/75 97 12/03/19 10:39 79 16 122/83 95 12/03/19 10:25 36.5 C 87 15 135/87 95 Date Exam was Performed: 12/03/19 Time Exam was Performed: 13:04 - Problem List & Annotations (1) Hepatic cirrhosis SNOMED Code(s): 29293898 Code(s): K74.60 - UNSPECIFIED CIRRHOSIS OF LIVER Status: Acute Priority: High Current Visit: No Onset Date: ~11/13/19 Annotation/Comment:: Progressive hepatic encephalopathy with previous history of severe hepatic cirrhosis with previous hepatic failure and secondary coma. Note recent paracentesis with 14 L and previous 10 L of ascites removed during hospitalizations at [facility] in November 2019 as above. Telephone consultation at 11:[address] Chavez, emergency room physician at [facility] in [place], who does accept the patient for direct admission into their facility, with no further treatment recommendations given. He does agree to notify the hospitalist concerning direct admission to their facility. Ambulance transfer with extrusion technician accompaniment. Consider permanent paracentesis catheter placement for as needed drainage. Note significant elevated persistent ammonia levels. Low-dose IV Ativan given for patient comfort and as possible seizure prophylaxis with no known alcoholic seizures despite patient's stool incontinence today. Qualifiers: Hepatic cirrhosis type: alcoholic cirrhosis Ascites presence: with ascites Qualified Code(s): K70.31 - Alcoholic cirrhosis of liver with ascites (2) CHF (congestive heart failure) SNOMED Code(s): 04175482 Code(s): I50.9 - HEART FAILURE, UNSPECIFIED Status: Acute Priority: High Current Visit: No Onset Date: 11/13/19 Annotation/Comment:: Note incomplete history as above. CHF with concomitant ascites with no chest pain or true anginal type symptoms. Chest pain protocol was not initiated in the emergency room secondary to absence of anginal complaints by history. No EKG changes consistent with ischemia with normal cardiac enzymes with exception of mildly elevated troponin I, secondary to his CHF. Note comfort care. Consider cardiology consultation, rule out of acute HI, etc. by accepting providers with recent cardiology consultation in their facility earlier in November 2019 as above. Note suboptimal EKG today secondary to baseline patient tremor with only some improvement with low-dose IV Ativan for patient comfort. Qualifiers: Heart failure type: combined systolic and diastolic Heart failure chronicity: acute Qualified Code(s): I50.41 - Acute combined systolic ( congestive) and diastolic (congestive) heart failure (3) Need for comfort care SNOMED Code(s): 457929755, 774751844 Code(s): RBA8051 - Status: Acute Priority: High Current Visit: No Annotation/Comment:: Review of medical records from [facility] indictates that the patient was placed in comfort care during recent hospitalization in that facility from . His is apparently now having second thoughts and "wants everything done" based on history from the paramedics. Recommend further counseling of the patient and family with patient likely a strong candidate for hospice care. Prognosis is extremely poor and guarded. (4) COPD (chronic obstructive pulmonary disease) SNOMED Code(s): 98246578 Code(s): J44.9 - CHRONIC OBSTRUCTIVE PULMONARY DISEASE, UNSPECIFIED Status : Acute Priority: High Current Visit: No Onset Date: ~11/13/19 Annotation/Comment:: No recent fever or bronchitic type symptoms. COVID-19 evaluation was collected on 11/12 and was negative. Consider PFTs depending on his clinical course. Note previous history of tobacco abuse with recent tobacco cessation. Note mild lactic acid elevation with no evidence of sepsis. Recommend repeat lactic acid level in about 34 hours per accepting providers. No IV fluids or antibiotics were initiated secondary to patient's CHF, etc. Qualifiers: COPD type: COPD with acute lower respiratory infection Qualified Code(s): J44.0 - Chronic obstructive pulmonary disease with (acute) lower respiratory infection (5) Peptic reflux disease SNOMED Code(s): 337481618 Code(s): K21.9 - GASTRO-ESOPHAGEAL REFLUX DISEASE WITHOUT ESOPHAGITIS Status: Chronic Priority: Medium Current Visit: No Annotation/Comment:: High-dose IV Pepcid and IV Pepcid given as GI prophylaxis with no recent abdominal complaints or evidence of GI bleed. (6) Hypoalbuminemia SNOMED Code(s): 504246577 Code(s): E88.09 - OTH DISORDERS OF PLASMA-PROTEIN METABOLISM, NEC Status: Acute Priority: Medium Current Visit: No Annotation/Comment:: Note hepatic cirrhosis. Continue to observe closely by accepting providers. (7) Elevated lactic acid level SNOMED Code(s): 5480092 Code(s): R79.89 - OTHER SPECIFIED ABNORMAL FINDINGS OF BLOOD CHEMISTRY Status: Acute Priority: High Current Visit: No Onset Date: 11/13/19 Annotation/Comment:: As above. No clinical evidence of sepsis. (8) Hypertension SNOMED Code(s): 54973227 Code(s): I10 - ESSENTIAL (PRIMARY) HYPERTENSION Status: Chronic Priority : High Current Visit: No Annotation/Comment:: Blood pressures were stable in the emergency room. Continue to observe closely by accepting providers. Qualifiers: Hypertension type: essential hypertension Qualified Code(s): I10 - Essential (primary) hypertension (9) Renal insufficiency SNOMED Code(s): 313064448, 395326075 Code(s): N28.9 - DISORDER OF KIDNEY AND URETER, UNSPECIFIED Status: Acute Priority: Medium Current Visit: No Onset Date: 11/27/19 Annotation/ Comment:: Continue to observe closely by accepting providers. Note hepatic disease as above. Note returned hyperkalemia with 60 mg of IV Lasix given in the emergency room. Additional severe hyponatremia, which is contributing to his sedation. (10) Hyperuricemia SNOMED Code(s): 03880537 Code(s): E79.0 - HYPERURICEMIA W/O SIGNS OF INFLAM ARTHRIT AND TOPHACEOUS DIS Status: Acute Priority: Medium Current Visit: No Onset Date: Annotation/Comment:: Observe patient's renal status closely. Note IV Lasix also given in the emergency room as above. - Problem List Review Problem List Initiated/Reviewed/Updated: Yes - My Orders Last 24 Hours: My Active Orders 12/03/19 10:29 Sodium Chloride 0.9% [Saline Flush] 10 ml FLUSH ASDIRECTED PRN Obtain Past Medical Record [OM.PC] Urgent Peripheral IV Insertion Adult [OM.PC] Stat Resuscitation Status Stat 12/03/19 10:30 Peripheral IV Care [RC] . DIRECTED 12/03/19 10:33 Cardiac Monitoring [RC] . DIRECTED 12/03/19 11:37 EKG 12 Lead [EK] Stat 12/03/19 11:38 EKG Documentation Completion [RC] ASDIRECTED 12/03/19 Breakfast Nothing Per Oral Diet [DIET] - Assessment/Plan Last 24 Hours: My Active Orders 12/03/19 10:29 Sodium Chloride 0.9% [Saline Flush] 10 ml FLUSH ASDIRECTED PRN Obtain Past Medical Record [OM.PC] Urgent Peripheral IV Insertion Adult [OM.PC] Stat Resuscitation Status Stat 12/03/19 10:30 Peripheral IV Care [RC] . DIRECTED 12/03/19 10:33 Cardiac Monitoring [RC] . DIRECTED 12/03/19 11:37 EKG 12 Lead [EK] Stat 12/03/19 11:38 EKG Documentation Completion [RC] ASDIRECTED 12/03/19 Breakfast Nothing Per Oral Diet [DIET] Assessment:: As above Plan: As above. Extensive precautions were given to the patient's , who is in agreement with the treatment plan. Ambulance Transfer to [facility] with extrusion technician accompaniment
[2019-12-03 11:07] LABS: PTT,PARTIAL THROMBOPLSTIN TIME 26.7 SEC (24.5-32.8)
[2019-12-03 11:09] LABS: CHLORIDE,CL 93 mmol/L (98-107); SODIUM,NA 128 mmol/L (136-145)
[2019-12-03] MEDS ORDERED: Furosemide 40 MG/4 ML VIAL IVPUSH ONE (11:38)
[2019-12-03] MEDS ORDERED: LORazepam 2 MG/ML SDV IVPUSH ONE (11:44)
== END 2019-12-03 12:55 ==
LOC: LL.ED 10:22
DX: K70.31 Alcoholic cirrhosis of liver with ascites (principal); I13.0 Hypertensive heart and chronic kidney disease with heart failure and stage 1 through stage 4 chronic kidney disease, or unspecified chronic kidney disease; N18.9 Chronic kidney disease, unspecified; I50.41 Acute combined systolic (congestive) and diastolic (congestive) heart failure; J44.0 Chronic obstructive pulmonary disease with (acute) lower respiratory infection; E88.09 Other disorders of plasma-protein metabolism, not elsewhere classified; E79.0 Hyperuricemia without signs of inflammatory arthritis and tophaceous disease; I49.3 Ventricular premature depolarization; I49.1 Atrial premature depolarization; R74.0 Nonspecific elevation of levels of transaminase and lactic acid dehydrogenase [LDH]; K27.9 Peptic ulcer, site unspecified, unspecified as acute or chronic, without hemorrhage or perforation; K21.9 Gastro-esophageal reflux disease without esophagitis; M19.90 Unspecified osteoarthritis, unspecified site; F41.9 Anxiety disorder, unspecified; F32.9 Major depressive disorder, single episode, unspecified; Z88.8 Allergy status to other drugs, medicaments and biological substances; Z88.1 Allergy status to other antibiotic agents; Z79.82 Long term (current) use of aspirin; Z79.899 Other long term (current) drug therapy
CPT/HCPCS: 36415; 80053; 80307; 82140; 82150; 82550; 82553; 83605; 83690; 83735; 83880; 84484; 84550; 85025; 85610; 85730; 93005; 96374; 96375; 99285-25; C9113; J1940; J2060; J3490